=== PATIENT | female | born 2000 | race African-American/Black ===

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

== ENCOUNTER 2018-03-04 17:09 | Emergency (ER) | payer SELFPAY ==
[~2018-03-04] VITALS: Ht 175.3 cm; Wt 68.0 kg
[~2018-03-04 17:09] MED LIST changes: +IBUP-1773 PO; +PNV1TABL67 PO
--- OUTSIDE RECORDS SUMMARY | 2018-03-04 17:19 | XMS REPORT ---
Author Author CURT MOISE [facility] Address [address] [place] [address] Care Team Providers Care Residential Green Building Designer Name Role Phone SUMA CURT Unavailable PROBLEMS Type Condition ICD9-CM Code [id number] Code Onset Dates Condition Status SNOMED Code Problem care, subsequent in third trimester Z34.83 Active 696847336 Problem labor in third trimester without delivery O60.03 Active 6379421 ALLERGIES No Information ENCOUNTERS Encounter Location Date Diagnosis [place] [id number] [place] [address] 75377- 2272 Jun, [place] [address] 39913- 6870 Jun, [place] [address] 54007- 2359 Jun, Screening for deficiency anemia Z13.0 [place] [address] 90108- 2798 Jun, [place] [address] [address] [id number] [place] [address] 66824- 3777 May, 34 weeks gestation of Z3A.34 ; Encounter for immunization Z23 and care, subsequent in third trimester Z34.83 [place] [id number] [place] [address] 74922- 8305 14 May, 2017 32 weeks gestation of Z3A.32 ; care, subsequent in third trimester Z34.83 ; labor in third trimester without delivery O60.03 and Encounter for immunization Z23 [place] [id number] [place] [address] 92153- 1282 Apr, Screening for deficiency anemia Z13.0 [place] [address] [place] [id number] [address] Apr, 28 weeks gestation of Z3A.28 ; Nausea and vomiting during O21.9 and Evaluate anatomy not seen on prior sonogram Z36 [place] [id number] [place] [address] 57572- 3979 Mar, 25 weeks gestation of Z3A.25 [place] [id number] [place] [address] 32081- 6298 Mar, 25 weeks gestation of Z3A.25 [place] [id number] [place] [address] 19020- 4682 Mar, 25 weeks gestation of Z3A.25 [place] [id number] [place] [address] 60052- 3503 Mar, [place] [id number] [place] [address] 27410- 4616 Mar, Encounter for test Z32.00 [place] [id number] [place] [address] 98649- 0779 Aug, Encounter for dental examination and cleaning without abnormal findings Z01.20 [place] [id number] [place] [address] 74435- 9729 Jun, Nodule of vagina N89.9 and Vaginal cyst N89.8 [place] [id number] [place] [address] 29755- 7297 Jun, Nodule of vagina N89.9 IMMUNIZATIONS No Known Immunizations SOCIAL HISTORY Never Assessed REASON FOR VISIT test (walk-in)--[facility] PLAN OF CARE VITAL SIGNS MEDICATIONS Unknown Medications RESULTS Name Result Date Reference Range TEST, URINE (IN HOUSE) 2017-04-16 RESULTS POSITIVE Lot # [id number] Control + Exp date 11/24/2018 PROCEDURES Procedure Date Ordered Result Body Site URINE TEST April 16, 2017 INSTRUCTIONS MEDICATIONS ADMINISTERED No Known Medications MEDICAL (GENERAL) HISTORY Type Description Date Medical History denies
--- OUTSIDE RECORDS SUMMARY | 2018-03-04 17:20 | XMS REPORT ---
Author Author [place] [facility] Address [address] [place] [address] Care Team Providers Care Water Resource Specialist Name Role Phone NYLAWRENCE PANCHALHANY Unavailable PROBLEMS Type Condition ICD9-CM Code PJW40-PO Code Onset Dates Condition Status SNOMED Code Problem care, subsequent in third trimester Z34.83 Active 538078297 Problem labor in third trimester without delivery O60.03 Active 2515107 ALLERGIES No Information ENCOUNTERS Encounter Location Date Diagnosis [place] [id number] [place] [address] 04315- 4905 Jun, [place] [address] 81711- 5290 Jun, [place] [address] 25012- 0513 Jun, Screening for deficiency anemia Z13.0 [place] [address] 35479- 7188 Jun, [place] [address] [id number] [place] [address] 64554- 4695 May, 34 weeks gestation of Z3A.34 ; Encounter for immunization Z23 and care, subsequent in third trimester Z34.83 [place] [id number] [place] [address] 77274- 2060 14 May, 2017 32 weeks gestation of Z3A.32 ; care, subsequent in third trimester Z34.83 ; labor in third trimester without delivery O60.03 and Encounter for immunization Z23 [place] [id number] [place] [address] 91477- 9427 Apr, Screening for deficiency anemia Z13.0 [place] [address] [id number] [place] [address] 89253- 1733 Apr, 28 weeks gestation of Z3A.28 ; Nausea and vomiting during O21.9 and Evaluate anatomy not seen on prior sonogram Z36 [place] [id number] [place] [address] 16233- 2872 Mar, 25 weeks gestation of Z3A.25 [place] [address] 69270- 5377 Mar, 25 weeks gestation of Z3A.25 [place] [address] [id number] [place] [address] 87875- 4787 Mar, 25 weeks gestation of Z3A.25 [place] [address] [id number] [place] [address] 92941- 8702 Mar, [address] 54792- 4763 Mar, Encounter for test Z32.00 [place] [id number] [place] [address] 50637- 0374 Aug, Encounter for dental examination and cleaning without abnormal findings Z01.20 [place] [id number] [place] [address] 89258- 2735 Jun, Nodule of vagina N89.9 and Vaginal cyst N89.8 [place] [id number] [place] [address] 90131- 8402 Jun, Nodule of vagina N89.9 IMMUNIZATIONS Vaccine Route Administration Date Status FLUARIX QUAD (3 AND UP) 2017 IM Intramuscular Jun 25, 2017 Administered SOCIAL HISTORY Never Assessed REASON FOR VISIT OB f/u --olimpia lynn PLAN OF CARE Activity Details Follow Up 2 Weeks, 2 Weeks Reason: VITAL SIGNS Height 69 in 2017-06-25 Weight 186.0 lbs 2017-06-25 Temperature 98.0 degrees Fahrenheit 2017-06-25 Heart Rate 88 bpm 2017-06-25 Respiratory Rate 20 2017-06-25 BMI 27.467 kg/m2 2017-06-25 Blood pressure systolic 118 mmHg 2017-06-25 Blood pressure diastolic 68 mmHg 2017-06-25 MEDICATIONS Medication Instructions Dosage Frequency Start Date End Date Duration Status 28-0.8 MG Orally daily 1 24h Mar, Active RESULTS Name Result Date Reference Range UA OB DIP (IN HOUSE) 2017-06-25 Glucose neg Protein trace PROCEDURES Procedure Date Ordered Result Body Site URINE-NO MICRO Jun 25, 2017 FLUARIX QUAD (3 & UP)-[id number]-2014Jun 25, 2017 SINGLE IMMUNIZATION ADMIN Jun 25, 2017 INSTRUCTIONS MEDICATIONS ADMINISTERED No Known Medications MEDICAL (GENERAL) HISTORY Type Description Date Medical History denies
--- OUTSIDE RECORDS SUMMARY | 2018-03-04 17:20 | XMS REPORT ---
Author Author [place] [facility] Address [address] [place] [address] Care Team Providers Care Boatwright Name Role Phone NYLAWRENCE PANCHALHANY Unavailable PROBLEMS Type Condition ICD9-CM Code VIW62-IK Code Onset Dates Condition Status SNOMED Code Problem care, subsequent in third trimester Z34.83 Active 235522170 Problem labor in third trimester without delivery O60.03 Active 4578260 ALLERGIES No Known Allergies ENCOUNTERS Encounter Location Date Diagnosis [place] [id number] [place] [address] 28015- 3497 Jun, [place] [address] 04771- 4618 Jun, [place] [address] 80932- 9945 Jun, Screening for deficiency anemia Z13.0 [place] [address] [id number] [place] [address] 23487- 1793 Jun, [place] [address] [address] [id number] [place] [address] 53958- 5672 May, 34 weeks gestation of Z3A.34 ; Encounter for immunization Z23 and care, subsequent in third trimester Z34.83 [place] [address] [address] [id number] [place] [address] 93228- 9514 14 May, 2017 32 weeks gestation of Z3A.32 ; care, subsequent in third trimester Z34.83 ; labor in third trimester without delivery O60.03 and Encounter for immunization Z23 [place] [id number] [place] [address] 50630- 9721 Apr, Screening for deficiency anemia Z13.0 [place] [id number] [place] [address] 47967- 0968 Apr, 28 weeks gestation of Z3A.28 ; Nausea and vomiting during O21.9 and Evaluate anatomy not seen on prior sonogram Z36 [place] [address] [id number] [place] [address] 62584- 5498 Mar, 25 weeks gestation of Z3A.25 [place] [address] [id number] [place] [address] 81866- 7570 Mar, 25 weeks gestation of Z3A.25 [place] [address] [id number] [place] [address] 14963- 6932 Mar, 25 weeks gestation of Z3A.25 [place] [address] [id number] [place] [address] 36996- 2234 Mar, [place] [address] [address] [id number] [place] [address] 10168- 8953 Mar, Encounter for test Z32.00 [place] [id number] [place] [address] 55894- 9206 Aug, Encounter for dental examination and cleaning without abnormal findings Z01.20 [place] [id number] [place] [address] 95746- 8986 Jun, Nodule of vagina N89.9 and Vaginal cyst N89.8 [place] [id number] [place] [address] 43130- 6815 Jun, Nodule of vagina N89.9 IMMUNIZATIONS No Known Immunizations SOCIAL HISTORY Never Assessed REASON FOR VISIT OB Flowsheet History--tcuppettRN PLAN OF CARE VITAL SIGNS MEDICATIONS Unknown Medications RESULTS No Results PROCEDURES No Known procedures INSTRUCTIONS MEDICATIONS ADMINISTERED No Known Medications MEDICAL (GENERAL) HISTORY Type Description Date Medical History denies
--- OUTSIDE RECORDS SUMMARY | 2018-03-04 17:20 | XMS REPORT ---
Author Author [place] [facility] Address [address] [place] [address] Care Team Providers Care Asp Net C Developer Name Role Phone NYLAWRENCE PANCHALHANY Unavailable PROBLEMS Type Condition ICD9-CM Code ZKF29-ZF Code Onset Dates Condition Status SNOMED Code Problem care, subsequent in third trimester Z34.83 Active 143088913 Problem labor in third trimester without delivery O60.03 Active 1239232 ALLERGIES No Information ENCOUNTERS Encounter Location Date Diagnosis [place] [id number] [place] [address] 11919- 4361 Jun, [place] [address] 90311- 2614 Jun, [place] [address] 33925- 0026 Jun, Screening for deficiency anemia Z13.0 [place] [address] 61915- 2536 Jun, [place] [id number] [place] [address] 02628- 6945 May, 34 weeks gestation of Z3A.34 ; Encounter for immunization Z23 and care, subsequent in third trimester Z34.83 [place] [id number] [place] [address] 16266- 5582 14 May, 2017 32 weeks gestation of Z3A.32 ; care, subsequent in third trimester Z34.83 ; labor in third trimester without delivery O60.03 and Encounter for immunization Z23 [place] [id number] [place] [address] 27758- 6754 Apr, Screening for deficiency anemia Z13.0 [place] [address] [id number] [place] [address] 43784- 0258 Apr, 28 weeks gestation of Z3A.28 ; Nausea and vomiting during O21.9 and Evaluate anatomy not seen on prior sonogram Z36 [place] [id number] [place] [address] 67020- 2854 Mar, 25 weeks gestation of Z3A.25 [place] [address] 85515- 8533 Mar, 25 weeks gestation of Z3A.25 [place] [address] 55524- 8578 Mar, 25 weeks gestation of Z3A.25 [place] [id number] [place] [address] 15601- 6135 Mar, [place] [address] 39364- 2449 Mar, Encounter for test Z32.00 [place] [id number] [place] [address] 58275- 8278 Aug, Encounter for dental examination and cleaning without abnormal findings Z01.20 [place] [id number] [place] [address] 50993- 9097 Jun, Nodule of vagina N89.9 and Vaginal cyst N89.8 [place] [id number] [place] [address] 53803- 1425 Jun, Nodule of vagina N89.9 IMMUNIZATIONS Vaccine Route Administration Date Status TDAP (BOOSTRIX) IM Intramuscular Jun 10, 2017 Administered SOCIAL HISTORY Never Assessed REASON FOR VISIT ob 2wk f/u-YUMIKO Reveles PLAN OF CARE Activity Details Follow Up 2 Weeks Reason: VITAL SIGNS Height 69 in 2017-06-10 Weight 179 lbs 2017-06-10 Temperature 98.3 degrees Fahrenheit 2017-06-10 Heart Rate 94 bpm 2017-06-10 Respiratory Rate 18 2017-06-10 BMI 26.434 kg/m2 2017-06-10 Blood pressure systolic 120 mmHg 2017-06-10 Blood pressure diastolic 70 mmHg 2017-06-10 MEDICATIONS Unknown Medications RESULTS No Results PROCEDURES Procedure Date Ordered Result Body Site URINE-NO MICRO Jun 10, 2017 SINGLE IMMUNIZATION ADMIN Jun 10, 2017 TDAP (BOOSTRIX) Jun 10, 2017 INSTRUCTIONS MEDICATIONS ADMINISTERED No Known Medications MEDICAL (GENERAL) HISTORY Type Description Date Medical History denies
--- OUTSIDE RECORDS SUMMARY | 2018-03-04 17:20 | XMS REPORT ---
Author Author [place] [facility] Address [address] [place] [address] Care Team Providers Care Sheet Cutter Name Role Phone NYLAWRENCE PANCHALHANY Unavailable PROBLEMS Type Condition ICD9-CM Code QKX30-LQ Code Onset Dates Condition Status SNOMED Code Problem care, subsequent in third trimester Z34.83 Active 453688611 Problem labor in third trimester without delivery O60.03 Active 6234976 ALLERGIES No Information ENCOUNTERS Encounter Location Date Diagnosis [place] [id number] [place] [address] 22674- 4611 Jun, [place] [address] 94906- 9243 Jun, [place] [address] 12063- 2173 Jun, Screening for deficiency anemia Z13.0 [place] [address] 01917- 4627 Jun, [place] [address] [id number] [place] [address] 34588- 6814 May, 34 weeks gestation of Z3A.34 ; Encounter for immunization Z23 and care, subsequent in third trimester Z34.83 [place] [address] [id number] [place] [address] 73276- 9815 14 May, 2017 32 weeks gestation of Z3A.32 ; care, subsequent in third trimester Z34.83 ; labor in third trimester without delivery O60.03 and Encounter for immunization Z23 [place] [id number] [place] [address] 26081- 4569 Apr, Screening for deficiency anemia Z13.0 [place] [id number] [place] [address] 62834- 7614 Apr, 28 weeks gestation of Z3A.28 ; Nausea and vomiting during O21.9 and Evaluate anatomy not seen on prior sonogram Z36 [place] [id number] [place] [address] 56786- 1871 Mar, 25 weeks gestation of Z3A.25 [place] [address] [id number] [place] [address] 59591- 7981 Mar, 25 weeks gestation of Z3A.25 [place] [id number] [place] [address] 11970- 8052 Mar, 25 weeks gestation of Z3A.25 [place] [id number] [place] [address] 83617- 4061 Mar, [place] [id number] [place] [address] 36877- 5189 Mar, Encounter for test Z32.00 [place] [id number] [place] [address] 95574- 5497 Aug, Encounter for dental examination and cleaning without abnormal findings Z01.20 [place] [address] [id number] [place] [address] 51429- 0301 Jun, Nodule of vagina N89.9 and Vaginal cyst N89.8 [place] [id number] [place] [address] 98541- 0000 Jun, Nodule of vagina N89.9 IMMUNIZATIONS No Known Immunizations SOCIAL HISTORY Never Assessed REASON FOR VISIT Requests return call PLAN OF CARE VITAL SIGNS MEDICATIONS Unknown Medications RESULTS No Results PROCEDURES No Known procedures INSTRUCTIONS MEDICATIONS ADMINISTERED No Known Medications MEDICAL (GENERAL) HISTORY Type Description Date Medical History denies
--- OUTSIDE RECORDS SUMMARY | 2018-03-04 17:20 | XMS REPORT ---
Author Author [place] [facility] Address [address] [place] [address] Care Team Providers Care Primary Therapist Name Role Phone NYLAWRENCE PANCHALHANY Unavailable PROBLEMS Type Condition ICD9-CM Code BAY18-HA Code Onset Dates Condition Status SNOMED Code Problem care, subsequent in third trimester Z34.83 Active 126102376 Problem labor in third trimester without delivery O60.03 Active 9606874 ALLERGIES No Information ENCOUNTERS Encounter Location Date Diagnosis [place] [id number] [place] [address] 47169- 2709 Jun, [place] [address] 12492- 4460 Jun, [place] [address] 83820- 8260 Jun, Screening for deficiency anemia Z13.0 [place] [address] 87344- 6328 Jun, [place] [id number] [place] [address] 30031- 3268 May, 34 weeks gestation of Z3A.34 ; Encounter for immunization Z23 and care, subsequent in third trimester Z34.83 [place] [id number] [place] [address] 67074- 7788 14 May, 2017 32 weeks gestation of Z3A.32 ; care, subsequent in third trimester Z34.83 ; labor in third trimester without delivery O60.03 and Encounter for immunization Z23 [place] [id number] [place] [address] 41891- 7699 Apr, Screening for deficiency anemia Z13.0 [place] [address] [place] [address] 45981- 3950 Apr, 28 weeks gestation of Z3A.28 ; Nausea and vomiting during O21.9 and Evaluate anatomy not seen on prior sonogram Z36 [place] [id number] [place] [address] 36308- 8764 Mar, 25 weeks gestation of Z3A.25 [place] [id number] [place] [address] 43634- 4156 Mar, 25 weeks gestation of Z3A.25 [place] [id number] [place] [address] 50165- 1915 Mar, 25 weeks gestation of Z3A.25 [place] [id number] [place] [address] 32606- 0886 Mar, [place] [id number] [place] [address] 99261- 8934 Mar, Encounter for test Z32.00 [place] [id number] [place] [address] 77027- 5065 Aug, Encounter for dental examination and cleaning without abnormal findings Z01.20 [place] [id number] [place] [address] 80754- 7194 Jun, Nodule of vagina N89.9 and Vaginal cyst N89.8 [place] [id number] [place] [address] 69428- 4721 Jun, Nodule of vagina N89.9 IMMUNIZATIONS No Known Immunizations SOCIAL HISTORY Never Assessed REASON FOR VISIT Lab (add-on)--[facility] PLAN OF CARE VITAL SIGNS MEDICATIONS Unknown Medications RESULTS No Results PROCEDURES Procedure Date Ordered Result Body Site BLOOD TYPING, RH (D) April 22, 2017 BLOOD TYPING, ABO April 22, 2017 INSTRUCTIONS MEDICATIONS ADMINISTERED No Known Medications MEDICAL (GENERAL) HISTORY Type Description Date Medical History denies
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
== END 2018-03-04 18:49 | disposition home or self-care (01) ==
LOC: EDUNIT# 17:09 → ER 17:11
DX: S80.11XA Contusion of right lower leg, initial encounter (principal); Z77.22 Contact with and (suspected) exposure to environmental tobacco smoke (acute) (chronic); W21.12XA Struck by tennis racquet, initial encounter
CPT/HCPCS: 99283

== ENCOUNTER 2018-03-13 05:44 | Emergency (ER) | payer SELFPAY ==
[~2018-03-13] VITALS: Ht 175.3 cm; Wt 65.8 kg
[2018-03-13 06:10] LABS: BILIRUBIN,URINE NEGATIVE (NEGATIVE); CLARITY,URINE VERY CLOUDY; COLOR,URINE YELLOW; GLUCOSE, URINE (UA) NEGATIVE (NEGATIVE); KETONES,URINE NEGATIVE (NEGATIVE); LEUKOCYTE ESTERASE ,URINE 3+ (NEGATIVE); NITRITE,URINE NEGATIVE (NEGATIVE); PH,URINE 8 (5-9); PROTEIN,URINE 3+ (NEGATIVE); UROBILINOGEN,URINE NORMAL (NORMAL)
[2018-03-13 06:19] LABS: BACTERIA,URINE FEW /HPF; WBC,URINE 50-100 /HPF
[2018-03-13] MEDS ORDERED: AMOXICILLIN 500 MG (POLYMOX) CAP PO STA (06:54)
--- NOTE | 2018-03-13 07:36 | ED GU-Female ---
General Chief Complaint: -Female Stated Complaint: BACK PAIN POSS UTI Nursing Triage Note: LOWER ABDOMINAL/BACK PAIN, Source: patient Exam Limitations: no limitations History of Present Illness Date Seen by Provider: Mar 13, 2018 Time Seen by Provider: 07:31 Initial Comments This 17-year-old female presents with lower abdominal and back pain. The patient believes that she is . She missed her last period and by dates would be approximately 6 weeks. Patient denies significant vaginal discharge, fever or chill, nausea or vomiting , or vaginal bleeding. Allergies and Home Medications Allergies Coded Allergies: No Known Drug Allergies (Unverified , 10/22/11) Home Medications No Active Prescriptions or Reported Meds Patient Home Medication List Home Medication List Reviewed: Yes Review of Systems Constitutional: No chills, No fever EENTM: no symptoms reported Respiratory: no symptoms reported Cardiovascular: no symptoms reported Gastrointestinal: abdominal pain Genitourinary: denies burning, denies dysuria : Yes LMP: Jan 24, 2018 Musculoskeletal: back pain Skin: No rash Psychiatric/Neurological: No Symptoms Reported Endocrine: No Symptoms Reported Hematologic/Lymphatic: No Symptoms Reported Past Wzviahw-Ptlxtn-Mnjkut Hx Past Med/Social Hx: Reviewed Nursing Past Med/Soc Hx Patient Social History Alcohol Use: Denies Use Recreational Drug Use: No Smoking Status: Never a Smoker 2nd Hand Smoke Exposure: Yes Recent Foreign Travel: No Contact w/Someone Who Travel: No Recent Infectious Disease Expo: No Recent Hopitalizations: No Immunizations Up To Date Tetanus Booster (TDap): Less than 5yrs PED Vaccines UTD: Yes Date of Influenza Vaccine: Jun 25, 2017 Seasonal Allergies Seasonal Allergies: No Past Medical History Surgeries: Yes (EGD) Respiratory: No Cardiac: No Neurological: No Reproductive Disorders: No Female Reproductive Disorders: Denies Sexually Transmitted Disease: No HIV/AIDS: No Genitourinary: No Gastrointestinal: Yes (CHRONIC LOWER ABDOMINAL PAIN ) Musculoskeletal: No Endocrine: No HEENT: No Cancer: No Psychosocial: No Integumentary: No Blood Disorders: No Adverse Reaction/Blood Tranf: No Family Medical History Diabetes mellitus (Mother-Gestational diabetes) No Pertinent Family Hx Physical Exam Vital Signs Vital Signs - First Documented 03/13/18 05:50 Temp 98.7 Pulse 81 Resp 18 B/P (MAP) 119/76 O2 Delivery Room Air Capillary Refill : General Appearance: WD/WN, no apparent distress HEENT: normal ENT inspection Cardiovascular: regular rate, rhythm Respiratory: lungs clear Gastrointestinal: normal bowel sounds, non tender Genital/Rectal: normal genital exam Pelvic: normal external exam, normal adnexa, other (patient's os was closed. Her uterus was retroflexed.) Back: normal inspection ( No adnexal masses were noted) Extremities: normal range of motion Neurologic/Psychiatric: no motor/sensory deficits Skin: normal color, warm/dry Progress/Results/Core Measures Suspected Sepsis SIRS Temperature:98.7 Pulse: Respiratory Rate: Blood Pressure / Mean: Results/Orders Lab Results Laboratory Tests Test 03/13/18 06:00 03/13/18 07:29 03/13/18 07:32 Range/Units Urine Color YELLOW Urine Clarity VERY CLOUDY H Urine pH 8 5-9 Urine Specific [place] 1.015 L 1.016-1.022 Urine Protein 3+ H NEGATIVE Urine Glucose (UA) NEGATIVE NEGATIVE Urine Ketones NEGATIVE NEGATIVE Urine Nitrite NEGATIVE NEGATIVE Urine Bilirubin NEGATIVE NEGATIVE Urine Urobilinogen NORMAL NORMAL MG/DL Urine Leukocyte Esterase 3+ H NEGATIVE Urine RBC (Auto) 4+ H NEGATIVE Urine RBC 10-25 H /HPF Urine WBC 50-100 H /HPF Urine Squamous Epithelial Cells 2-5 /HPF Urine Crystals NONE /LPF Urine Bacteria FEW H /HPF Urine Casts NONE /LPF Urine Mucus MODERATE H /LPF Urine Culture Indicated YES Human Chorionic Gonadotropin, Quant [id number] H <5 MIU/ML My Orders Orders - MATTHIAS KIM MD Hcg,Quantitative (03/13/18 06:54) Amoxicillin Capsule (Polymox Capsule) (03/13/18 06:54) Us Ob Single Fetus<14 [id number] (03/13/18 08:57) Wet Prep (03/13/18 09:35) Chlam Dna Probe (03/13/18 09:35) Neisseria Gonorrhea Swab (03/13/18 09:35) Vital Signs/I&O 03/13/18 05:50 Temp 98.7 Pulse 81 Resp 18 B/P (MAP) 119/76 O2 Delivery Room Air Capillary Refill : Point of Care Testing Urine -Bedside: Positive Progress Note : Time: 08:37 Progress Note The patient's laboratory examination demonstrated a UTI. Culture was done. Patient was given 500 mg of amoxicillin orally to start her treatment for a UTI here in the emergency department. The patient's type and Rh demonstrated that the patient was be positive. Pelvic exam demonstrated a closed os. Uterus was small and retroflexed. Cultures were obtained. Quantitative hCG was 130,000. Ultrasound demonstrated a viable intrauterine of 8 weeks. Departure Impression Primary Impression: Urinary tract infection Qualified Codes: N30.00 - Acute cystitis without hematuria Additional Impression: Intrauterine Disposition: HOME, SELF-CARE Condition: Improved Departure-Patient Inst. Decision time for Depature: 08:40 Referrals: NO,LOCAL PHYSICIAN (PCP) Primary Care Physician [facility] Patient Instructions: Acute Cystitis (DC) Add. Discharge Instructions: C [facility] for your urinary tract infection and tomorrow. Amoxicillin as prescribed. Return if any problems or questions. All discharge instructions reviewed with patient and/or family. Voiced understanding. Scripts No Active Prescriptions or Reported Meds MATTHIAS KIM MD Mar 13, 2018 07:35
--- NOTE | 2018-03-13 09:27 | Diagnostic Imaging Report ---
PROCEDURE: US OB SINGLE FETUS <14 WKS. TECHNIQUE: Multiple real-time grayscale images were obtained over the gravid uterus in various projections. Indication: Dysuria, pelvic pain, . Comparison: None. Discussion: Transabdominal sonographic evaluation of the pelvis was performed. Early live intrauterine at 8 weeks 4 days by today's sonographic measurements. [place]-rump length measures 1.97 cm. heart rate measures 161 beats per minute. Gestational sac appears within normal limits. The ovaries were not visualized, likely obscured by bowel. No abnormal adnexal mass or fluid. EDC by today's ultrasound is 10/19/2018. Impression: 1. Early live intrauterine at 8 weeks 4 days. No acute abnormality identified. Dictated by: Dictated on workstation # [id number]
--- OUTSIDE RECORDS SUMMARY | 2018-03-13 14:16 | XMS REPORT | Continuity of Care Document ---
Author Author [facility] Organization [facility] Address Unknown Phone Unavailable Allergies Active Description Code Type Severity Reaction Onset Reported/Identified Relationship to Patient Clinical Status Yes No Known Drug Allergies [id number] Drug Allergy Unknown N/A 10/22/2011 Medications There is no data. Problems Date Dx Coded Attending Type Code [...] 10/02/2015 RICA GUILLEN MD Ot R11.0 10/02/2015 RCIA GUILLEN MD Ot R19.7 10/02/2015 RICA GUILLEN [...] MD Ot R19.7 DIARRHEA, UNSPECIFIED 02/01/2016 NABIL DOVERONICA K Ot O20.0 THREATENED 02/01/2016 NABIL DONOYA K Ot O23.41 UNSP INFCT OF URINARY TRACT IN 02/01/2016 NABIL DONOYA K Ot Z3A.01 LESS THAN 8 WEEKS GESTATION OF 02/03/2016 NABIL DO, VERONICA K Ot O20.0 THREATENED 02/03/2016 NABIL DO, VERONICA K Ot O23.41 UNSP INFCT OF URINARY TRACT IN 02/03/2016 NABIL DO, VERONICA K Ot Z3A.01 LESS THAN 8 WEEKS GESTATION OF 06/30/2016 NATALIA JONES MD Ot S92.355A NONDISP FX OF FIFTH METATARSAL BONE, LEF 06/30/2016 NATALIA JONES MD Ot S99.912A UNSPECIFIED INJURY OF LEFT ANKLE, INITIA 06/30/2016 NATALIA JONES MD Ot X58.XXXA EXPOSURE TO OTHER SPECIFIED FACTORS, INI 06/30/2016 NATALIA JONES MD Ot Y92.[address] [employer] [address] 06/30/2016 NATALIA JONES MD, Ot Y93.73 ACTIVITY, RACQU[employer] 06/30/2016 NATALIA JONES MD Ot Y99.8 OTHER EXTERNAL CAUSE STATUS 07/01/2016 NATALIA JONES MD, Ot S92.355A NONDISP FX OF FIFTH METATARSAL BONE, LEF 07/01/2016 NATALIA JONES MD, Ot S99.912A UNSPECIFIED INJURY OF LEFT ANKLE, INITIA 07/01/2016 NATALIA JONES MD Ot X58.XXXA EXPOSURE TO OTHER SPECIFIED FACTORS, INI 07/01/2016 NATALIA JONES MD Ot Y92.[address] [employer] [address] 07/01/2016 NATALIA JONES MD, Ot Y93.73 ACTIVITY, [employer] 07/01/2016 NATALIA JONES MD Ot Y99.8 OTHER EXTERNAL CAUSE STATUS 07/21/2016 AUDELIA CESAR NUTRITION THERAPIST Ot 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, UNSP 07/21/2016 AUDELIA CESAR NUTRITION THERAPIST Ot 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, UNSP 07/22/2016 AUDELIA CESAR NUTRITION THERAPIST Ot 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, UNSP 07/24/2016 AUDELIA CESAR NUTRITION THERAPIST Ot 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, UNSP 09/07/2016 WILMER LANDRUM, RICA Moore Ot R10.2 PELVIC AND PERINEAL PAIN 09/07/2016 WILMER LANDRUM, RICA Moore Ot R10.9 UNSPECIFIED ABDOMINAL PAIN 09/07/2016 RICA GUILLEN MD Ot R11.0 NAUSEA 09/07/2016 RICA GUILLEN MD Ot R19.7 DIARRHEA, UNSPECIFIED 09/07/2016 WILMER LANDRUM, RICA Moore Ot Z83.79 FAMILY HISTORY OF OTHER DISEASES OF THE 09/07/2016 WILMER LANDRUM, RICA Moore Ot R10.2 PELVIC AND PERINEAL PAIN 09/07/2016 WILMER LANDRUM, RICA Moore Ot R11.2 NAUSEA WITH VOMITING, UNSPECIFIED 09/07/2016 WILMER LANDRUM, RICA Moore Ot R19.7 DIARRHEA, UNSPECIFIED 11/02/2016 AUDELIA CESAR NUTRITION THERAPIST Ot 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, UNSP 11/02/2016 AUDELIA CESAR NUTRITION THERAPIST Ot 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, UNSP 11/12/2016 AUDELIA CESAR NUTRITION THERAPIST Ot 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, UNSP 12/10/2016 YAMILETH, JOHNNY SENIOR SCHEDULER Ot N39.0 URINARY TRACT INFECTION, SITE NOT SPECIF 12/10/2016 YAMILETH, JOHNNY SENIOR SCHEDULER Ot R30.0 DYSURIA 12/10/2016 AUDELIA CESAR NUTRITION THERAPIST Ot 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, UNSP 12/14/2016 YAMILETH, JOHNNY SENIOR SCHEDULER Ot N39.0 URINARY TRACT INFECTION, SITE NOT SPECIF 12/14/2016 YAMILETH, JOHNNY SENIOR SCHEDULER Ot R30.0 DYSURIA 12/14/2016 YAMILETH, JOHNNY SENIOR SCHEDULER Ot N39.0 URINARY TRACT INFECTION, SITE NOT SPECIF 12/14/2016 YAMILETH, JOHNNY SENIOR SCHEDULER Ot R30.0 DYSURIA 03/12/2017 AUDELIA CESAR NUTRITION THERAPIST Ot 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, UNSP 03/13/2017 TEA CESPEDES Ot O23.42 UNSP INFCT OF URINARY TRACT IN 03/13/2017 TEA CESPEDES Ot O26.892 OTH RELATED CONDITIONS, SECOND 03/13/2017 TEA CESPEDES Ot Z3A.18 18 WEEKS GESTATION OF 03/13/2017 AUDELIA CESAR APRN Ot 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, UNSP 04/26/2017 AUDELIA CESAR APRN Ot 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, UNSP 04/26/2017 NATALIA JONES MD, Ot K92.0 HEMATEMESIS 04/26/2017 NATALIA JONES MD, Ot O99.612 DISEASES OF THE DGSTV SYS COMP 04/26/2017 NATALIA JONES MD, Ot Z3A.26 26 WEEKS GESTATION OF 04/26/2017 AUDELIA CESAR APRN Ot 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, UNSP 04/28/2017 NATALIA JONES MD, Ot K92.0 HEMATEMESIS 04/28/2017 NATALIA JONES MD, Ot O99.612 DISEASES OF THE DGSTV SYS COMP 04/28/2017 NATALIA JONES MD, Ot Z3A.26 26 WEEKS GESTATION OF 05/04/2017 AUDELIA CESAR APRN Ot 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, UNSP 05/05/2017 AUDELIA CESAR APRN Ot 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, [facility] 05/22/2017 MARLI ALEJANDRA MD, Ot Z36 ENCOUNTER FOR SCREENING OF MOT 05/22/2017 MARLI ALEJANDRA MD, Ot Z3A.27 27 WEEKS GESTATION OF 06/06/2017 MARLI ALEJANDRA MD, Ot O09.33 SUPRVSN OF PREG W INSUFFICIENT ANTENAT C 06/06/2017 MARLI ALEJANDRA MD, Ot O26.893 OTH RELATED CONDITIONS, THIRD 06/06/2017 MARLI ALEJANDRA MD, Ot O99.323 DRUG USE COMPLICATING , THIRD T 06/06/2017 MARLI ALEJANDRA MD Ot R10.30 LOWER ABDOMINAL PAIN, UNSPECIFIED 06/06/2017 MARLI ALEJANDRA MD Ot Z3A.31 31 WEEKS GESTATION OF 07/05/2017 BARNIDGE DO DONNELL E Ot D64.9 ANEMIA, UNSPECIFIED 07/05/2017 BARNIDGE DO DONNELL E Ot O60.14X0 LABOR THIRD TRI W DELIVE 07/05/2017 BARNIDGE DO, DONNELL E Ot O62.3 PRECIPITATE LABOR 07/05/2017 BARNIDGE DO DONNELL E Ot O70.0 FIRST DEGREE PERINEAL LACERATION DURING 07/05/2017 BARNIDGE DO, DONNELL E Ot O76 ABNLT IN HEART RATE AND RHYTHM COM 07/05/2017 BARNIDGE DO DONNELL E Ot O99.03 ANEMIA COMPLICATING THE PUERPERIUM 07/05/2017 BARNIDGE DO DONNELL E Ot Z37.0 SINGLE LIVE 07/05/2017 BARNIDGE DO DONNELL E Ot Z3A.35 35 WEEKS GESTATION OF 03/04/2018 AUDELIA CESAR APRN Ot 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, [facility] 03/04/2018 MARLI ALEJANDRA MD Ot Z36 ENCOUNTER FOR SCREENING OF MOT 03/04/2018 MARLI ALEJANDRA MD, Ot Z3A.27 27 WEEKS GESTATION OF 03/04/2018 AUDELIA CESAR APRN Ot 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, [facility] 03/04/2018 MARLI ALEJANDRA MD Ot Z36 ENCOUNTER FOR SCREENING OF MOT 03/04/2018 MARLI ALEJANDRA MD, Ot Z3A.27 27 WEEKS GESTATION OF Procedures Code Description Performed By Performed On [id number] REPAIR PERINEUM SKIN, EXTERNAL APPROACH 07/03/2017 [id number] DELIVERY OF PRODUCTS OF CONCEPTION, EXTE 07/03/2017 Results Test Result Range Anaerobic and Aerobic Culture - 07/20/16 11:27 Anaerobic and Aerobic Culture Note Complete urinalysis with reflex to culture - 12/10/16 12:40 Urine color determination YELLOW NRG Urine clarity determination CLEAR NRG Urine pH measurement by test strip 7 5-9 Specific gravity of urine by test strip 1.015 1.016- 1.022 Urine protein assay by test strip, semi-quantitative 2+ NEGATIVE Urine glucose detection by automated test strip NEGATIVE NEGATIVE Erythrocytes detection in urine sediment by light microscopy NEGATIVE NEGATIVE Urine ketones detection by automated test strip 1+ NEGATIVE Urine nitrite detection by test strip NEGATIVE NEGATIVE Urine total bilirubin detection by test strip NEGATIVE NEGATIVE Urine urobilinogen measurement by automated test strip (mass/volume) NORMAL NORMAL Urine leukocyte esterase detection by dipstick 3+ NEGATIVE Automated urine sediment erythrocyte count by microscopy (number/high power field) RARE NRG Automated urine sediment leukocyte count by microscopy (number/high power field ) [HPF] NRG Bacteria detection in urine sediment by light microscopy MODERATE NRG Squamous epithelial cells detection in urine sediment by light microscopy 2-5 NRG Crystals detection in urine sediment by light microscopy NONE NRG Casts detection in urine sediment by light microscopy NONE NRG Mucus detection in urine sediment by light microscopy SMALL NRG Complete urinalysis with reflex to culture YES NRG Bacterial urine culture - 12/10/16 12:40 Bacterial urine culture FOOTNOTE NRG Complete urinalysis with reflex to culture - 03/12/17 22:11 Urine color determination YELLOW NRG Urine clarity determination CLEAR NRG Urine pH measurement by test strip 8 5-9 Specific gravity of urine by test strip 1.010 1.016- 1.022 Urine protein assay by test strip, semi-quantitative NEGATIVE NEGATIVE Urine glucose detection by automated test strip NEGATIVE NEGATIVE Erythrocytes detection in urine sediment by light microscopy NEGATIVE NEGATIVE Urine ketones detection by automated test strip NEGATIVE NEGATIVE Urine nitrite detection by test strip NEGATIVE NEGATIVE Urine total bilirubin detection by test strip NEGATIVE NEGATIVE Urine urobilinogen measurement by automated test strip (mass/volume) NORMAL NORMAL Urine leukocyte esterase detection by dipstick 2+ NEGATIVE Automated urine sediment erythrocyte count by microscopy (number/high power field) NONE NRG Automated urine sediment leukocyte count by microscopy (number/high power field ) [HPF] NRG Bacteria detection in urine sediment by light microscopy TRACE NRG Squamous epithelial cells detection in urine sediment by light microscopy 5-10 NRG Crystals detection in urine sediment by light microscopy NONE NRG Casts detection in urine sediment by light microscopy NONE NRG Mucus detection in urine sediment by light microscopy NEGATIVE NRG Complete urinalysis with reflex to culture YES NRG Bacterial urine culture - 03/12/17 22:11 URINE CULTURE RESULTS <10,000/ML NRG Complete blood count (CBC) with automated white blood cell (WBC) differential - 03/12/17 22:15 Blood leukocytes automated count (number/volume) 9.2 10*3/uL 4.3-11.0 Blood erythrocytes automated count (number/volume) 3.53 10*6/uL 4.35-5.85 Venous blood hemoglobin measurement (mass/volume) 11.4 g/dL 11.5-16.0 Blood hematocrit (volume fraction) 33 % 35-52 Automated erythrocyte mean corpuscular volume 94 [foz_us] 80-99 Automated erythrocyte mean corpuscular hemoglobin (mass per erythrocyte) 32 pg 25-34 Automated erythrocyte mean corpuscular hemoglobin concentration measurement ( mass/volume) 35 g/dL 32-36 Automated erythrocyte distribution width ratio 12.8 % 10.0-14.5 Automated blood platelet count (count/volume) 248 10*3/uL 130-400 Automated blood platelet mean volume measurement 10.6 [foz_us] 7.4-10.4 Automated blood neutrophils/100 leukocytes 71 % 42-75 Automated blood lymphocytes/100 leukocytes 20 % 12-44 Blood monocytes/100 leukocytes 9 % 0-12 Automated blood eosinophils/100 leukocytes 1 % 0-10 Automated blood basophils/100 leukocytes 0 % 0-10 Blood neutrophils automated count (number/volume) 6.5 10*3 1.8-7.8 Blood lymphocytes automated count (number/volume) 1.9 10*3 1.0-4.0 Blood monocytes automated count (number/volume) 0.8 10*3 0.0-1.0 Automated eosinophil count 0.1 10*3/uL 0.0-0.3 Automated blood basophil count (count/volume) 0.0 10*3/uL 0.0-0.1 Comprehensive metabolic panel - 03/12/17 22:15 Serum or plasma sodium measurement (moles/volume) 139 mmol/L 135-145 Serum or plasma potassium measurement (moles/volume) 3.6 mmol/L 3.6-5.0 Serum or plasma chloride measurement (moles/volume) 109 mmol/L 98-107 Carbon dioxide 19 mmol/L 21-32 Serum or plasma anion gap determination (moles/volume) 11 mmol/L 5-14 Serum or plasma urea nitrogen measurement (mass/volume) 10 mg/dL 7-18 Serum or plasma creatinine measurement (mass/volume) 0.60 mg/dL 0.60-1.30 Serum or plasma urea nitrogen/creatinine mass ratio 17 0 -20 Serum or plasma creatinine measurement with calculation of estimated glomerular filtration rate > NRG Serum or plasma glucose measurement (mass/volume) 110 mg/dL 70-105 Serum or plasma calcium measurement (mass/volume) 9.6 mg/dL 8.5-10.1 Serum or plasma total bilirubin measurement (mass/volume) 0.2 mg/dL 0.1-1.0 Serum or plasma alkaline phosphatase measurement (enzymatic activity/volume) 70 U/L 60-350 Serum or plasma aspartate aminotransferase measurement (enzymatic activity/ volume) 17 U/L 5-34 Serum or plasma alanine aminotransferase measurement (enzymatic activity/volume ) 15 U/L 0-55 Serum or plasma protein measurement (mass/volume) 6.9 g/dL 6.4-8.2 Serum or plasma albumin measurement (mass/volume) 3.6 g/dL 3.2-4.5 Genital Culture, Routine - 04/22/17 14:10 Genital Culture, Routine Note Urine Culture, Routine - 04/22/17 14:10 Urine Culture, Routine Note ABO Grouping and Rho(D) Typing - 04/22/17 14:10 ABO Grouping B Rh Factor Positive Written Authorization - 04/22/17 14:10 Written Authorization Comment CBC With Differential/Platelet - 04/22/17 14:10 WBC 10.0 x10E3/uL 3.4-10.8 RBC 3.54 x10E6/uL 3.77-5.28 Hemoglobin 11.1 g/dL 11.1-15.9 Hematocrit 33.7 % 34.0-46.6 MCV 95 fL 79-97 MCH 31.4 pg 26.6-33.0 MCHC 32.9 g/dL 31.5-35.7 RDW 12.8 % 12.3-15.4 Platelets 246 x10E3/uL 150-379 Neutrophils 77 % Lymphs 16 % Monocytes 7 % Eos 0 % Basos 0 % Neutrophils (Absolute) 7.6 x10E3/uL 1.4-7.0 Lymphs (Absolute) 1.6 x10E3/uL 0.7-3.1 Monocytes(Absolute) 0.7 x10E3/uL 0.1-0.9 Eos (Absolute) 0.0 x10E3/uL 0.0-0.4 Baso (Absolute) 0.0 x10E3/uL 0.0-0.2 Immature Granulocytes 0 % Immature Grans (Abs) 0.0 x10E3/uL 0.0-0.1 TSH - 04/22/17 14:10 TSH 1.370 uIU/mL 0.450-4.500 Rubella Antibodies, IgG - 04/22/17 14:10 Rubella Antibodies, IgG 5.47 index Immune >0.99 Antibody Screen - 04/22/17 14:10 Antibody Screen Negative Negative CBC With Differential/Platelet - 05/13/17 15:43 WBC 10.3 x10E3/uL 3.4-10.8 RBC 3.48 x10E6/uL 3.77-5.28 Hemoglobin 10.6 g/dL 11.1-15.9 Hematocrit 32.6 % 34.0-46.6 MCV 94 fL 79-97 MCH 30.5 pg 26.6-33.0 MCHC 32.5 g/dL 31.5-35.7 RDW 12.8 % 12.3-15.4 Platelets 311 x10E3/uL 150-379 Neutrophils 70 % Lymphs 17 % Monocytes 11 % Eos 1 % Basos 0 % Neutrophils (Absolute) 7.2 x10E3/uL 1.4-7.0 Lymphs (Absolute) 1.8 x10E3/uL 0.7-3.1 Monocytes(Absolute) 1.2 x10E3/uL 0.1-0.9 Eos (Absolute) 0.1 x10E3/uL 0.0-0.4 Baso (Absolute) 0.0 x10E3/uL 0.0-0.2 Immature Granulocytes 1 % Immature Grans (Abs) 0.1 x10E3/uL 0.0-0.1 Gest. Diabetes 1-Hr Screen - 05/13/17 15:43 Gestational Diabetes Screen 79 mg/dL 65-139 CBC - 05/13/17 15:43 WBC 10.3 x10E3/uL 3.4-10.8 RBC 3.48 x10E6/uL 3.77-5.28 Hemoglobin 10.6 g/dL 11.1-15.9 Hematocrit 32.6 % 34.0-46.6 MCV 94 fL 79-97 MCH 30.5 pg 26.6-33.0 MCHC 32.5 g/dL 31.5-35.7 RDW 12.8 % 12.3-15.4 Platelets 311 x10E3/uL 150-379 Neutrophils 70 % NRG Lymphs 17 % NRG Monocytes 11 % NRG Eos 1 % NRG Basos 0 % NRG Neutrophils (Absolute) 7.2 x10E3/uL 1.4-7.0 Lymphs (Absolute) 1.8 x10E3/uL 0.7-3.1 Monocytes(Absolute) 1.2 x10E3/uL 0.1-0.9 Eos (Absolute) 0.1 x10E3/uL 0.0-0.4 Baso (Absolute) 0.0 x10E3/uL 0.0-0.2 Immature Granulocytes 1 % NRG Immature Grans (Abs) 0.1 x10E3/uL 0.0-0.1 Immature Cells NRG NRBC NRG Hematology Comments: NRG Complete urinalysis with reflex to culture - 06/05/17 20:25 Urine color determination YELLOW NRG Urine clarity determination CLEAR NRG Urine pH measurement by test strip 6 5-9 Specific gravity of urine by test strip 1.020 1.016- 1.022 Urine protein assay by test strip, semi-quantitative NEGATIVE NEGATIVE Urine glucose detection by automated test strip 1+ NEGATIVE Erythrocytes detection in urine sediment by light microscopy NEGATIVE NEGATIVE Urine ketones detection by automated test strip NEGATIVE NEGATIVE Urine nitrite detection by test strip NEGATIVE NEGATIVE Urine total bilirubin detection by test strip NEGATIVE NEGATIVE Urine urobilinogen measurement by automated test strip (mass/volume) NORMAL NORMAL Urine leukocyte esterase detection by dipstick 1+ NEGATIVE Automated urine sediment erythrocyte count by microscopy (number/high power field) NONE NRG Automated urine sediment leukocyte count by microscopy (number/high power field ) [HPF] NRG Bacteria detection in urine sediment by light microscopy NEGATIVE NRG Squamous epithelial cells detection in urine sediment by light microscopy 2-5 NRG Crystals detection in urine sediment by light microscopy NONE NRG Casts detection in urine sediment by light microscopy NONE NRG Mucus detection in urine sediment by light microscopy MODERATE NRG Complete urinalysis with reflex to culture NO NRG Urine drug screening test - 06/05/17 20:25 Urine phencyclidine detection by screening method NEGATIVE NEGATIVE Urine benzodiazepines detection by screening method NEGATIVE NEGATIVE Urine cocaine detection NEGATIVE NEGATIVE Urine amphetamines detection by screening method NEGATIVE NEGATIVE Urine methamphetamine detection by screening method NEGATIVE NEGATIVE Urine cannabinoids detection by screening method POSITIVE NEGATIVE Urine opiates detection by screening method NEGATIVE NEGATIVE Urine barbiturates detection NEGATIVE NEGATIVE Screening urine tricyclic antidepressants detection NEGATIVE NEGATIVE Urine methadone detection by screening method NEGATIVE NEGATIVE Urine oxycodone detection NEGATIVE NEGATIVE Urine propoxyphene detection NEGATIVE NEGATIVE Capillary blood glucose measurement by glucometer (mass/volume) - 06/05/17 20: 58 Capillary blood glucose measurement by glucometer (mass/volume) 84 mg/dL 70-110 Complete blood count (CBC) with automated white blood cell (WBC) differential - 06/06/17 01:35 Blood leukocytes automated count (number/volume) 10.8 10*3/uL 4.3-11.0 Blood erythrocytes automated count (number/volume) 3.25 10*6/uL 4.35-5.85 Venous blood hemoglobin measurement (mass/volume) 10.1 g/dL 11.5-16.0 Blood hematocrit (volume fraction) 30 % 35-52 Automated erythrocyte mean corpuscular volume 93 [foz_us] 80-99 Automated erythrocyte mean corpuscular hemoglobin (mass per erythrocyte) 31 pg 25-34 Automated erythrocyte mean corpuscular hemoglobin concentration measurement ( mass/volume) 33 g/dL 32-36 Automated erythrocyte distribution width ratio 12.4 % 10.0-14.5 Automated blood platelet count (count/volume) 203 10*3/uL 130-400 Automated blood platelet mean volume measurement 10.5 [foz_us] 7.4-10.4 Automated blood neutrophils/100 leukocytes 87 % 42-75 Automated blood lymphocytes/100 leukocytes 9 % 12-44 Blood monocytes/100 leukocytes 4 % 0-12 Automated blood eosinophils/100 leukocytes 0 % 0-10 Automated blood basophils/100 leukocytes 0 % 0-10 Blood neutrophils automated count (number/volume) 9.3 10*3 1.8-7.8 Blood lymphocytes automated count (number/volume) 1.0 10*3 1.0-4.0 Blood monocytes automated count (number/volume) 0.5 10*3 0.0-1.0 Automated eosinophil count 0.0 10*3/uL 0.0-0.3 Automated blood basophil count (count/volume) 0.0 10*3/uL 0.0-0.1 Comprehensive metabolic panel - 06/06/17 01:35 Serum or plasma sodium measurement (moles/volume) 137 mmol/L 135-145 Serum or plasma potassium measurement (moles/volume) 3.4 mmol/L 3.6-5.0 Serum or plasma chloride measurement (moles/volume) 109 mmol/L 98-107 Carbon dioxide 16 mmol/L 21-32 Serum or plasma anion gap determination (moles/volume) 12 mmol/L 5-14 Serum or plasma urea nitrogen measurement (mass/volume) 10 mg/dL 7-18 Serum or plasma creatinine measurement (mass/volume) 0.63 mg/dL 0.60-1.30 Serum or plasma urea nitrogen/creatinine mass ratio 16 NRG Serum or plasma creatinine measurement with calculation of estimated glomerular filtration rate > NRG Serum or plasma glucose measurement (mass/volume) 93 mg/dL 70-105 Serum or plasma calcium measurement (mass/volume) 8.5 mg/dL 8.5-10.1 Serum or plasma total bilirubin measurement (mass/volume) 0.3 mg/dL 0.1-1.0 Serum or plasma alkaline phosphatase measurement (enzymatic activity/volume) 136 U/L 60-350 Serum or plasma aspartate aminotransferase measurement (enzymatic activity/ volume) 18 U/L 5-34 Serum or plasma alanine aminotransferase measurement (enzymatic activity/volume ) 15 U/L 0-55 Serum or plasma protein measurement (mass/volume) 5.8 g/dL 6.4-8.2 Serum or plasma albumin measurement (mass/volume) 3.0 g/dL 3.2-4.5 Magnesium - 06/06/17 01:35 Magnesium 1.6 mg/dL 1.8-2.4 Magnesium - 06/06/17 08:45 Magnesium 3.3 mg/dL 1.8-2.4 Complete blood count (CBC) with automated white blood cell (WBC) differential - 07/03/17 02:06 Blood leukocytes automated count (number/volume) 11.2 10*3/uL 4.3-11.0 Blood erythrocytes automated count (number/volume) 3.46 10*6/uL 4.35-5.85 Venous blood hemoglobin measurement (mass/volume) 10.5 g/dL 11.5-16.0 Blood hematocrit (volume fraction) 32 % 35-52 Automated erythrocyte mean corpuscular volume 93 [foz_us] 80-99 Automated erythrocyte mean corpuscular hemoglobin (mass per erythrocyte) 30 pg 25-34 Automated erythrocyte mean corpuscular hemoglobin concentration measurement ( mass/volume) 33 g/dL 32-36 Automated erythrocyte distribution width ratio 12.7 % 10.0-14.5 Automated blood platelet count (count/volume) 231 10*3/uL 130-400 Automated blood platelet mean volume measurement 11.0 [foz_us] 7.4-10.4 Automated blood neutrophils/100 leukocytes 66 % 42-75 Automated blood lymphocytes/100 leukocytes 20 % 12-44 Blood monocytes/100 leukocytes 14 % 0-12 Automated blood eosinophils/100 leukocytes 0 % 0-10 Automated blood basophils/100 leukocytes 0 % 0-10 Blood neutrophils automated count (number/volume) 7.4 10*3 1.8-7.8 Blood lymphocytes automated count (number/volume) 2.2 10*3 1.0-4.0 Blood monocytes automated count (number/volume) 1.5 10*3 0.0-1.0 Automated eosinophil count 0.0 10*3/uL 0.0-0.3 Automated blood basophil count (count/volume) 0.0 10*3/uL 0.0-0.1 Blood type T Indirect antibody screen panel - 07/03/17 02:06 ABO+Rh group BP NR Transfusion band number [id number] [facility] Blood group antibody screen NEGATIVE [facility] Complete blood count (CBC) with automated white blood cell (WBC) differential - 07/04/17 05:30 Blood leukocytes automated count (number/volume) 11.2 10*3/uL 4.3-11.0 Blood erythrocytes automated count (number/volume) 3.46 10*6/uL 4.35-5.85 Venous blood hemoglobin measurement (mass/volume) 10.5 g/dL 11.5-16.0 Blood hematocrit (volume fraction) 32 % 35-52 Automated erythrocyte mean corpuscular volume 94 [foz_us] 80-99 Automated erythrocyte mean corpuscular hemoglobin (mass per erythrocyte) 30 pg 25-34 Automated erythrocyte mean corpuscular hemoglobin concentration measurement ( mass/volume) 32 g/dL 32-36 Automated erythrocyte distribution width ratio 13.1 % 10.0-14.5 Automated blood platelet count (count/volume) 213 10*3/uL 130-400 Automated blood platelet mean volume measurement 10.6 [foz_us] 7.4-10.4 Automated blood neutrophils/100 leukocytes 73 % 42-75 Automated blood lymphocytes/100 leukocytes 17 % 12-44 Blood monocytes/100 leukocytes 10 % 0-12 Automated blood eosinophils/100 leukocytes 1 % 0-10 Automated blood basophils/100 leukocytes 0 % 0-10 Blood neutrophils automated count (number/volume) 8.2 10*3 1.8-7.8 Blood lymphocytes automated count (number/volume) 1.9 10*3 1.0-4.0 Blood monocytes automated count (number/volume) 1.1 10*3 0.0-1.0 Automated eosinophil count 0.1 10*3/uL 0.0-0.3 Automated blood basophil count (count/volume) 0.0 10*3/uL 0.0-0.1 Encounters ACCT No. Visit Date/Time Discharge Status Pt. Type Provider Facility Loc./Unit Complaint [id number] 03/04/2018 17:11:00 03/04/2018 18:49:00 DIS Emergency ADRIAN BECKER APRN [facility] ER R LEG SWELLING [id number] 07/03/2017 01:25:00 07/05/2017 11:15:00 DIS Inpatient ASHLEYOLGA CASANOVA DONNELL Yoseph [facility] LABOR [id number] 06/05/2017 19:35:00 06/06/2017 12:25:00 DIS Inpatient MARLI ALEJANDRA MD [facility] CTX [id number] 05/14/2017 09:59:00 05/14/2017 23:59:59 CLS Preadmit MARLI ALEJANDRA MD [facility] RAD Z36 EVALUATE ANATOMY NOT SEEN ON PRIOR SONO [id number] 05/05/2017 10:32:00 05/05/2017 23:59:59 CLS Outpatient MARLI ALEJANDRA MD [facility] RAD 25 WEEKS GESTATION OF PREG [id number] 04/26/2017 12:51:00 04/26/2017 14:21:00 DIS Emergency NATALIA JONES MD [facility] ER VOMITING BLOOD/26 WKS PG [id number] 03/12/2017 22:03:00 03/13/2017 00:31:00 DIS Emergency TEA CESPEDES [facility] ER 18W PREG, BACK AND ABD PAIN [id number] 12/10/2016 12:22:00 12/10/2016 13:26:00 DIS Emergency J[facility]NNY CARSON [facility] [facility] ER UTI SYMPTOMS [id number] 07/20/2016 14:16:00 07/20/2016 23:59:59 CLS Outpatient AUDELIA CESAR NUTRITION THERAPIST Via [facility] RAD NODULE OF VAGINA [id number] 07/16/2016 11:25:00 07/16/2016 23:59:59 CLS Outpatient AUDELIA CESAR NUTRITION THERAPIST Via [facility] RAD NODULE OF VAGINA [id number] 06/30/2016 08:56:00 06/30/2016 11:01:00 DIS Emergency NATALIA JONES MD Via [facility] ER L FOOT PAIN [id number] 01/31/2016 21:05:00 02/01/2016 01:01:00 DIS Emergency NABIL CASANOVA VERONICA Lin Via [facility] ER ABD PAIN [id number] 07/08/2015 14:23:00 07/08/2015 23:59:59 CLS Outpatient RICA GUILLEN MD Via [facility] RAD ABDOMINAL/PELVIC PAIN [id number] 07/05/2015 15:46:00 07/05/2015 23:59:59 CLS Outpatient RICA GUILLEN MD Via [facility] RAD ABDOMINAL/PELVIC PAIN [id number] 05/08/2013 14:06:00 05/08/2013 23:59:59 CLS Outpatient AURORA BATRES Via [facility] [employer] PHYSICAL [id number] 05/28/2017 15:51:00 Document Registration [id number] 05/28/2017 15:51:00 Document Registration [id number] 05/28/2017 15:51:00 Document Registration [id number] 05/28/2017 15:51:00 Document Registration [id number] 10/22/2011 13:16:00 Document Registration [id number] 04/25/2017 08:35:00 Document Registration [id number] 04/24/2017 20:07:00 Document Registration [id number] 05/14/2017 08:07:00 Document Registration [id number] 07/09/2017 11:20:00 07/09/2017 23:59:59 [facility] [id number] 05/13/2017 14:20:00 Document Registration [id number] 04/27/2017 12:09:00 Document Registration [id number] 07/08/2015 15:11:20 ACT Document Registration [id number] 04/23/2017 19:07:00 Document Registration [id number] 07/24/2016 13:05:00 Document Registration
== END 2018-03-13 10:02 | disposition home or self-care (01) ==
LOC: EDUNIT# 05:44 → ER 05:46
DX: O23.41 Unspecified infection of urinary tract in pregnancy, first trimester (principal); Z77.22 Contact with and (suspected) exposure to environmental tobacco smoke (acute) (chronic); Z3A.08 8 weeks gestation of pregnancy
CPT/HCPCS: 36415; 76801; 81000; 84702; 84703; 87077; 87088; 87186; 87210; 87491; 87591

== ENCOUNTER 2018-06-07 15:13 | Outpatient (CLI) | payer MEDICAID, OTHER ==
[~2018-06-07] VITALS: Ht 170.2 cm; Wt 73.5 kg
[2018-06-07 16:37] VITALS: BP 108/70
[2018-06-07 17:08] LABS: BASOPHILS % (AUTO) 0 % (0-10); EOSINOPHILS % (AUTO) 0 % (0-10); HEMATOCRIT 38 % (35-52); HEMOGLOBIN 12.9 G/DL (11.5-16.0); LYMPHOCYTES # (AUTO) 1.8 X 10^3 (1.0-4.0); LYMPHOCYTES % (AUTO) 20 % (12-44); MEAN CORPUSCULAR HEMOGLOBIN 32 PG (25-34); MEAN CORPUSCULAR HGB CONC 34 G/DL (32-36); MEAN CORPUSCULAR VOLUME 95 FL (80-99); MEAN PLATELET VOLUME 10.3 FL (7.4-10.4); MONOCYTES # (AUTO) 0.7 X 10^3 (0.0-1.0); MONOCYTES % (AUTO) 8 % (0-12); NEUTROPHILS # (AUTO) 6.4 X 10^3 (1.8-7.8); NEUTROPHILS % (AUTO) 72 % (42-75); PLATELET COUNT 292 10^3/uL (130-400); RED CELL DISTRIBUTION WIDTH 13.5 % (10.0-14.5); WHITE BLOOD COUNT 8.9 10^3/uL (4.3-11.0)
[2018-06-07 17:37] LABS: AMPHETAMINE SCREEN, URINE NEGATIVE (NEGATIVE); BARBITURATE SCREEN URINE NEGATIVE (NEGATIVE); BENZODIAZEPINES SCREEN URINE NEGATIVE (NEGATIVE); CANNABINOID SCREEN, URINE NEGATIVE (NEGATIVE); COCAINE SCREEN URINE NEGATIVE (NEGATIVE); METHADONE STAT NEGATIVE (NEGATIVE); METHAMPHETAMINE SCREEN URINE S NEGATIVE (NEGATIVE); OPIATE SCREEN URINE NEGATIVE (NEGATIVE); OXYCODONE STAT NEGATIVE (NEGATIVE); PROPOXYPHENE STAT NEGATIVE (NEGATIVE); TRICYCLIC ANTIDEPRESSANTS SCRE NEGATIVE (NEGATIVE)
[2018-06-09 07:52] LABS: HEPATITIS C ANTIBODY C Non-Reactive (Non-Reactive)
--- NOTE | 2018-06-10 09:31 | Physician Query-Final Dx ---
ALESIA HIGHTOWER 06/10/18 0931: Clinic Account Progress/Dx Physician Query: Please give a diagnosis and the weeks of gestation thank you Date of Service Jun 07, 2018 at 15:13 JIN CARTER DO 06/29/18 1523: Clinic Account Progress/Dx DIAGNOSIS: Diagnosis 22 weeks no care decreased movement history of labor and delivery ALESIA HIGHTOWER Jun 10, 2018 09:31 JIN CARTER DO Jun 29, 2018 15:23
== END 2018-06-07 17:20 | disposition home or self-care (01) ==
LOC: WSo 15:13 → LDRP 15:14 → WSo 17:20
PROVIDERS: ATTEND Obstetrics & Gynecology
DX: O36.8120 Decreased fetal movements, second trimester, not applicable or unspecified (principal); O09.32 Supervision of pregnancy with insufficient antenatal care, second trimester; O09.212 Supervision of pregnancy with history of pre-term labor, second trimester; Z3A.22 22 weeks gestation of pregnancy
CPT/HCPCS: 36415; 80074; 80306; 85025; 86703; 86762; 86780; 86850; 86900; 86901; 87491; 87591; 99212

== ENCOUNTER → 2018-08-08 | Outpatient (CLI) | payer MEDICAID ==
--- NOTE | 2018-08-08 17:22 | Diagnostic Imaging Report ---
INDICATION: Anatomic survey. TECHNIQUE: Multiple real-time grayscale images were obtained over the gravid uterus. COMPARISON: None. FINDINGS: There is a single live intrauterine gestation in the cephalic presentation. Grade 2 anterior placenta. Anatomic measurements correspond to a 30 week, 6 day gestation. Subjectively normal amniotic fluid. JALIL is not documented. heart rate 142 beats per minute. Normal kidneys, bladder, stomach, four-chamber heart, three-vessel cord and spine are documented. The intracranial anatomy is poorly evaluated due to the cephalic presentation. Cord insertion is not well seen. Biometrical measurements are as follows: Biparietal 7.90 cm, age 31 weeks 5 days. Head circumference 28.21 cm, age 31 weeks 0 days. Abdominal circumference 25.57 cm, age 29 weeks 6 days. Femur length 5.81 cm, age 30 weeks 3 days. Sonographic estimate age: 30 weeks 6 days. Sonographic estimated date of delivery: 10/11/18. Estimated Weight: 1531 gm (+/- 224 gm). LMP percentile: 55%. heart rate: 142 beats per minute. number: 1 of 1. IMPRESSION: Unremarkable survey as above. Intracranial anatomy is not well seen due to cephalic presentation. The cord insertion was also not well seen. Dictated by: Dictated on workstation # [id number]
== END ==
LOC: RAD 15:48
PROVIDERS: ATTEND Obstetrics & Gynecology
DX: O09.213 Supervision of pregnancy with history of pre-term labor, third trimester (principal); Z3A.30 30 weeks gestation of pregnancy
CPT/HCPCS: 76805

== ENCOUNTER 2018-09-21 09:00 | Inpatient (IN) | payer MEDICAID ==
[~2018-09-21] VITALS: Ht 175.3 cm; Wt 88.2 kg
[2018-09-21] VITALS (32 sets, daily range): BP systolic 99–163; BP diastolic 55–77
[2018-09-21] MEDS ORDERED: D5 LR IV SOLUTION 1,000 ML IV SCH (09:45)
[2018-09-21] MEDS ORDERED: AMPICILLIN FOR IV USE 2,000 MG in NS (IVPB) 50 ML IV SCH (09:48)
[2018-09-21] MEDS ORDERED: CATHETER FLUSH 10 ML SYR IV PRN ×2 (10:00→16:45)
[2018-09-21 10:13] LABS: BASOPHILS % (AUTO) 0 % (0-10); EOSINOPHILS # (AUTO) 0.1 10^3/uL (0.0-0.3); EOSINOPHILS % (AUTO) 1 % (0-10); HEMATOCRIT 32 % (35-52); HEMOGLOBIN 10.7 G/DL (11.5-16.0); LYMPHOCYTES # (AUTO) 1.4 X 10^3 (1.0-4.0); LYMPHOCYTES % (AUTO) 17 % (12-44); MEAN CORPUSCULAR HEMOGLOBIN 31 PG (25-34); MEAN CORPUSCULAR HGB CONC 33 G/DL (32-36); MEAN CORPUSCULAR VOLUME 93 FL (80-99); MEAN PLATELET VOLUME 10.2 FL (7.4-10.4); MONOCYTES # (AUTO) 0.9 X 10^3 (0.0-1.0); MONOCYTES % (AUTO) 11 % (0-12); NEUTROPHILS # (AUTO) 5.7 X 10^3 (1.8-7.8); NEUTROPHILS % (AUTO) 71 % (42-75); PLATELET COUNT 219 10^3/uL (130-400); RED BLOOD COUNT 3.43 10^6/uL (4.35-5.85); RED CELL DISTRIBUTION WIDTH 13.4 % (10.0-14.5); WHITE BLOOD COUNT 8.1 10^3/uL (4.3-11.0)
[2018-09-21] MEDS ORDERED: SUFENTA 0.6MCG/ML BUPIVA 0.125 0 ML ONE (10:24)
[2018-09-21 10:29] LABS: AMPHETAMINE SCREEN, URINE NEGATIVE (NEGATIVE); BARBITURATE SCREEN URINE NEGATIVE (NEGATIVE); BENZODIAZEPINES SCREEN URINE NEGATIVE (NEGATIVE); CANNABINOID SCREEN, URINE NEGATIVE (NEGATIVE); COCAINE SCREEN URINE NEGATIVE (NEGATIVE); METHADONE STAT NEGATIVE (NEGATIVE); METHAMPHETAMINE SCREEN URINE S NEGATIVE (NEGATIVE); OPIATE SCREEN URINE NEGATIVE (NEGATIVE); OXYCODONE STAT NEGATIVE (NEGATIVE); PROPOXYPHENE STAT NEGATIVE (NEGATIVE); TRICYCLIC ANTIDEPRESSANTS SCRE NEGATIVE (NEGATIVE)
[2018-09-21 10:32] LABS: BACTERIA,URINE FEW /HPF; BILIRUBIN,URINE NEGATIVE (NEGATIVE); CLARITY,URINE CLEAR; COLOR,URINE YELLOW; GLUCOSE, URINE (UA) NEGATIVE (NEGATIVE); KETONES,URINE NEGATIVE (NEGATIVE); LEUKOCYTE ESTERASE ,URINE NEGATIVE (NEGATIVE); NITRITE,URINE NEGATIVE (NEGATIVE); PH,URINE 7 (5-9); PROTEIN,URINE NEGATIVE (NEGATIVE); UROBILINOGEN,URINE NORMAL (NORMAL)
[2018-09-21] MEDS ORDERED: fentaNYL INJECTION 100 MCG/2 ML AMP ONE (10:42)
[2018-09-21] MEDS ORDERED: OXYTOCIN/NORMAL SALINE 500 ML IV SCH ×2 (10:50→10:52)
--- NOTE | 2018-09-21 10:58 | History & Physical ---
History and Physical Date Seen by Provider: Sep 21, 2018 Time Seen by Provider: 10:54 This patient is a 18-year-old white female patient of Dr. Blanco for whom I am covering. She presented at 36 weeks gestation with complaints of contractions pain and pressure. She denies rupture membranes or bleeding. Her previous delivery occurred at 36 weeks gestation. She was found to be for this 5 cm dilated after less than an hour she was 6-7. She was started empirically on ampicillin for GBS prophylaxis and given a single dose of betamethasone 12 mg IM. She is requesting pain medication and that has been allowed an epidural Allergies are none Medications are vitamins Medical social and surgical histories are per the antepartum record of Dr. Blanco HEENT exam is normal Neck is supple no lymphadenopathy no thyromegaly Abdomen is gravid soft nontender nondistended Extreme show clubbing cyanosis. There is no Homans sign. Pelvic exam per the nurse shows a cervix of 7 cm dilated, intact membranes, vertex presentation, 100 percent effaced, +1 to +2 station Laboratory Tests 09/21/18 09:57 Laboratory Tests Test 09/21/18 09:30 09/21/18 09:57 Range/Units Urine Color YELLOW Urine Clarity CLEAR Urine pH 7 5-9 Urine Specific [place] 1.010 L 1.016-1.022 Urine Protein NEGATIVE NEGATIVE Urine Glucose (UA) NEGATIVE NEGATIVE Urine Ketones NEGATIVE NEGATIVE Urine Nitrite NEGATIVE NEGATIVE Urine Bilirubin NEGATIVE NEGATIVE Urine Urobilinogen NORMAL NORMAL MG/DL Urine Leukocyte Esterase NEGATIVE NEGATIVE Urine RBC (Auto) NEGATIVE NEGATIVE Urine RBC NONE /HPF Urine WBC 2-5 /HPF Urine Squamous Epithelial Cells 2-5 /HPF Urine Crystals NONE /LPF Urine Bacteria FEW H /HPF Urine Casts NONE /LPF Urine Mucus SMALL H /LPF Urine Culture Indicated NO Urine Opiates Screen NEGATIVE NEGATIVE Urine Oxycodone Screen NEGATIVE NEGATIVE Urine Methadone Screen NEGATIVE NEGATIVE Urine Propoxyphene Screen NEGATIVE NEGATIVE Urine Barbiturates Screen NEGATIVE NEGATIVE Ur Tricyclic Antidepressants Screen NEGATIVE NEGATIVE Urine Phencyclidine Screen NEGATIVE NEGATIVE Urine Amphetamines Screen NEGATIVE NEGATIVE Urine Methamphetamines Screen NEGATIVE NEGATIVE Urine Benzodiazepines Screen NEGATIVE NEGATIVE Urine Cocaine Screen NEGATIVE NEGATIVE Urine Cannabinoids Screen NEGATIVE NEGATIVE White Blood Count 8.1 4.3-11.0 10^3/uL Red Blood Count 3.43 L 4.35-5.85 10^6/uL Hemoglobin 10.7 L 11.5-16.0 G/DL Hematocrit 32 L 35-52 % Mean Corpuscular Volume 93 80-99 FL Mean Corpuscular Hemoglobin 31 25-34 PG Mean Corpuscular Hemoglobin Concent 33 32-36 G/DL Red Cell Distribution Width 13.4 10.0-14.5 % Platelet Count 219 130-400 10^3/uL Mean Platelet Volume 10.2 7.4-10.4 FL Neutrophils (%) (Auto) 71 42-75 % Lymphocytes (%) (Auto) 17 12-44 % Monocytes (%) (Auto) 11 0-12 % Eosinophils (%) (Auto) 1 0-10 % Basophils (%) (Auto) 0 0-10 % Neutrophils # (Auto) 5.7 1.8-7.8 X 10^3 Lymphocytes # (Auto) 1.4 1.0-4.0 X 10^3 Monocytes # (Auto) 0.9 0.0-1.0 X 10^3 Eosinophils # (Auto) 0.1 0.0-0.3 10^3/uL Basophils # (Auto) 0.0 0.0-0.1 10^3/uL Assessment and plan 36 week gestation with labor and a history of labor and delivery. It appears delivery is eminent. Patient been started on ampicillin for GBS prophylaxis she was given a dose of betamethasone. Vaginal delivery is eminent 36 week labor Allergies and Home Medications Allergies Coded Allergies: No Known Drug Allergies (Unverified , 10/22/11) Home Medications No Active Prescriptions or Reported Meds Patient Home Medication List Home Medication List Reviewed: Yes JANET LOPEZ MD Sep 21, 2018 10:58
[2018-09-21 10:59] LABS: BAND NEUTROPHILS 0 %; BASOPHILS % (MANUAL) 0 %; EOSINOPHILS % (MANUAL) 2 %; LYMPHOCYTES % (MANUAL) 24 %; MONOCYTES % (MANUAL) 6 %; NEUTROPHILS % (MANUAL) 68 %
[2018-09-21 11:00] LABS: RBC MORPH NORMAL
[2018-09-21] MEDS ORDERED: IBUP-1780 PO (11:00)
[2018-09-21] MEDS ORDERED: BENZOCAINE/MENTHOL (DERMOPLAST) 56 ML CAN TP PRN (11:00)
[2018-09-21] MEDS ORDERED: KETOROLAC 30 MG/ML VIAL IV SCH (11:00)
[2018-09-21] MEDS ORDERED: TETANUS,DIPTH,PERTUSS P/F (BOOSTRIX) 0.5 ML VIAL IM ONE (11:00)
[2018-09-21] MEDS ORDERED: ONDANSETRON 4 MG/2 ML (SDV) Z0FRAN IVP PRN (11:00)
[2018-09-21] MEDS ORDERED: MEASLES,MUMPS,RUBELLA 1 EA INJ SC ONE (11:00)
[2018-09-21] MEDS ORDERED: oxyCODONE/APAP 5/325MG (PERCOCET 5) TABLET PO PRN (11:00)
[2018-09-21] MEDS ORDERED: DOCU100C37 PO (11:00)
[2018-09-21] MEDS ORDERED: OXYC1TAB87 PO (11:00)
--- NOTE | 2018-09-21 11:01 | Discharge Instructions ---
Discharge Instructions Discharge Medications New, Converted or Re-Newed RX: RX on Chart Patient Instructions Patient Instructions: As directed Return to The Hospital For: As directed Activity & Diet Discharge Diet: No Restrictions Activity as Tolerated: No Orders-Post D/C & Referrals Follow Up Appt: Call to make follow up appt. for patient with Dr. Blanco in 6 weeks. Activity Per routine post vaginal delivery instructions. Please call in RX to patient pharmacy. Diet as tolerated Patient may shower or tub bathe as desired. JANET LOPEZ MD Sep 21, 2018 11:01
[2018-09-21] MEDS ORDERED: AMPICILLIN FOR IV USE 1,000 MG in NS (IVPB) 50 ML IV SCH (14:00)
[2018-09-21] MEDS ORDERED: LIDOCAINE PF 2% 5 ML (XYLOCAINE) VIAL ONE (16:16)
[2018-09-21] MEDS ORDERED: BUPIVACAINE 0.25% 30 ML (SENSORCAINE) VIAL ONE (16:16)
[2018-09-21] MEDS ORDERED: BUPIVACAINE SPINAL 0.75% (SENSORCAINE) 2 ML AMP ONE (16:17)
[2018-09-21] MEDS ORDERED: LACTATED RINGERS 1,000 ML IV ONE (16:33)
[2018-09-21] MEDS ORDERED: NALOXONE 0.4 MG/ML 1 ML (NARCAN) VIAL IV PRN (16:45)
[2018-09-21] MEDS ORDERED: DOCUSATE SODIUM 100 MG (COLACE) CAP PO SCH (21:00)
--- NOTE | 2018-09-21 21:36 | OPERATIVE REPORT ---
DATE OF SERVICE: 09/21/2018 DELIVERY NOTE The patient delivered by 36-week a spontaneous vaginal delivery of a male with Apgars of 9 and 9 at 1 and 5 minutes. Expected weight of 6 pounds 11 ounces, cord blood gas with pH that is pending and a time of 09/10/2018. The is a male. The was bulb suctioned on delivery of the head and again on completion of delivery. When the cord was pulseless, it was doubly clamped, father cut the cord, the baby was passed to Dr. Hall at the [facility] secondary to prematurity. The placenta delivered spontaneously Call after obtaining cord bloods. Placenta was sent to pathology for permanent section. The cervix, vagina, rectum and perineum were examined and found intact except for several superficial abrasions on the anterior labia bilaterally two on each side. These were hemostatic and did not require repair. Sponge and needle counts were correct on completion of delivery. The estimated blood loss was around 100 mL. The patient remained in the LDR for recovery. The baby remained at this point with the mom. Job ID: [id number] DocumentID: [id number] Dictated Date: 09/21/2018 12:29:08 Gravel Machine Operator Date: 09/21/2018 21:35:52 Dictated By: JANET LOPEZ MD
[2018-09-22] MEDS ORDERED: IBUPROFEN 800 MG (MOTRIN) TAB PO SCH (11:00)
== END 2018-09-21 18:25 | disposition home or self-care (01) | DRG 807 ==
LOC: WSo 09:00 → LDRP 09:04 → WSo 10:04 → UNDOADMIN 10:05 → LDRP 10:05
PROVIDERS: ADMIT Obstetrics & Gynecology; ATTEND Obstetrics & Gynecology
PROC: 10E0XZZ Delivery of Products of Conception, External Approach (ICD-10-PCS; principal; 2018-09-21)
DX: O60.14X0 Preterm labor third trimester with preterm delivery third trimester, not applicable or unspecified (principal); O71.82 Other specified trauma to perineum and vulva; Z3A.36 36 weeks gestation of pregnancy; Z37.0 Single live birth
CPT/HCPCS: 36415; 80306; 81000; 85007; 85027; 86850; 86900; 86901; 99212

== ENCOUNTER 2018-09-27 20:27 | Emergency (ER) | payer MEDICAID ==
[~2018-09-27] VITALS: Ht 175.3 cm; Wt 72.7 kg
[~2018-09-27 20:27] MED LIST changes: +DOCU100C37 PO; +IBUP-1780 PO; +OXYC1TAB87 PO
[2018-09-27] MEDS ORDERED: KETOROLAC 30 MG/ML VIAL IVP STA (22:51)
[2018-09-27] MEDS ORDERED: LACTATED RINGERS 1,000 ML IV ONE (22:51)
[2018-09-27] MEDS ORDERED: PANTOPRAZOLE 40 MG (PROTONIX) VIAL IV ONE (23:00)
[2018-09-27] MEDS ORDERED: ONDANSETRON 4 MG/2 ML (SDV) Z0FRAN IVP ONE (23:00)
[2018-09-27 23:11] LABS: BILIRUBIN,URINE NEGATIVE (NEGATIVE); CLARITY,URINE CLEAR; COLOR,URINE YELLOW; GLUCOSE, URINE (UA) NEGATIVE (NEGATIVE); KETONES,URINE NEGATIVE (NEGATIVE); LEUKOCYTE ESTERASE ,URINE 1+ (NEGATIVE); NITRITE,URINE NEGATIVE (NEGATIVE); PH,URINE 5 (5-9); PROTEIN,URINE 1+ (NEGATIVE); UROBILINOGEN,URINE NORMAL (NORMAL)
[2018-09-27 23:18] LABS: BACTERIA,URINE NEGATIVE /HPF; SQUAMOUS EPITHELIAL CELL,UR RARE /HPF; WBC,URINE RARE /HPF
[2018-09-27 23:22] LABS: BASOPHILS % (AUTO) 0 % (0-10); EOSINOPHILS # (AUTO) 0.2 10^3/uL (0.0-0.3); EOSINOPHILS % (AUTO) 2 % (0-10); HEMATOCRIT 39 % (35-52); HEMOGLOBIN 12.6 G/DL (11.5-16.0); LYMPHOCYTES # (AUTO) 2.1 X 10^3 (1.0-4.0); LYMPHOCYTES % (AUTO) 24 % (12-44); MEAN CORPUSCULAR HEMOGLOBIN 30 PG (25-34); MEAN CORPUSCULAR HGB CONC 33 G/DL (32-36); MEAN CORPUSCULAR VOLUME 93 FL (80-99); MEAN PLATELET VOLUME 10.2 FL (7.4-10.4); MONOCYTES # (AUTO) 0.7 X 10^3 (0.0-1.0); MONOCYTES % (AUTO) 8 % (0-12); NEUTROPHILS # (AUTO) 5.7 X 10^3 (1.8-7.8); NEUTROPHILS % (AUTO) 66 % (42-75); PLATELET COUNT 350 10^3/uL (130-400); RED BLOOD COUNT 4.14 10^6/uL (4.35-5.85); RED CELL DISTRIBUTION WIDTH 12.9 % (10.0-14.5); WHITE BLOOD COUNT 8.6 10^3/uL (4.3-11.0)
[2018-09-27 23:39] LABS: ALANINE AMINOTRANSFERASE 34 U/L (0-55); ALBUMIN 3.9 GM/DL (3.2-4.5); ALKALINE PHOSPHATASE 150 U/L (40-136); AMYLASE 60 U/L (25-125); BILIRUBIN,TOTAL 0.4 MG/DL (0.1-1.0); BUN/CREATININE RATIO 21; CALCIUM 9.6 MG/DL (8.5-10.1); CARBON DIOXIDE 18 MMOL/L (21-32); CHLORIDE 106 MMOL/L (98-107); CREATININE SERUM 0.68 MG/DL (0.60-1.30); GFR ESTIMATED > 60; GLUCOSE 79 MG/DL (70-105); LIPASE 17 U/L (8-78); POTASSIUM 3.8 MMOL/L (3.6-5.0); SODIUM 139 MMOL/L (135-145); TOTAL PROTEIN 7.4 GM/DL (6.4-8.2)
[2018-09-28] MEDS ORDERED: NS 100 ML (IVPB) BAG IV ONE
[2018-09-28] MEDS ORDERED: IOHEXOL 350 MG/ML 100 ML (OMNIPAQUE 350) VIAL IV ONE
[2018-09-28] MEDS ORDERED: RECEIVED CONTRAST (Hold Metformin) IV SCH
[2018-09-28] MEDS ORDERED: PANT40TA2 PO (00:36)
[2018-09-28] MEDS ORDERED: HYOS0.1283 SL (00:36)
[2018-09-28] MEDS ORDERED: ONDA4TAB11 PO (00:36)
--- NOTE | 2018-09-28 00:37 | ED Abdominal Pain ---
General Chief Complaint: Abdominal/GI Problems Stated Complaint: VAG ON 09/21, STILL IN PAIN Nursing Triage Note: intermittant upper abdominal pain s/p vaginal 09/21/18 Sepsis Screen: No Definite Risk Source of Information: Patient Allergies and Home Medications Allergies Coded Allergies: No Known Drug Allergies (Unverified , 10/22/11) Home Medications No Active Prescriptions or Reported Meds Past Slckzyw-Xfuadr-Fuljqo Hx Patient Social History Alcohol Use: Denies Use Recreational Drug Use: No Smoking Status: Former Smoker Type Used: Cigarettes 2nd Hand Smoke Exposure: Yes Recent Foreign Travel: No Contact w/Someone Who Travel: No Recent Infectious Disease Expo: No Recent Hopitalizations: Yes (09/21/18) Immunizations Up To Date Tetanus Booster (TDap): Unknown PED Vaccines UTD: Yes Date of Influenza Vaccine: Jul 25, 2018 Seasonal Allergies Seasonal Allergies: No Past Medical History Surgeries: Yes (EGD) Respiratory: No Cardiac: No Neurological: No : No Reproductive Disorders: No Female Reproductive Disorders: Denies Sexually Transmitted Disease: No HIV/AIDS: No Genitourinary: No Gastrointestinal: Yes (CHRONIC LOWER ABDOMINAL PAIN ) Musculoskeletal: No Endocrine: No HEENT: No Cancer: No Psychosocial: No Integumentary: No Blood Disorders: No Adverse Reaction/Blood Tranf: No Family Medical History Diabetes mellitus (Mother-Gestational diabetes) No Pertinent Family Hx Physical Exam Vital Signs Vital Signs - First Documented 09/27/18 22:41 Temp 96.6 Pulse 83 Resp 18 B/P (MAP) 126/77 (93) Pulse Ox 97 O2 Delivery Room Air Capillary Refill : Less Than 3 Seconds Height/Weight/BMI Height: 5'9.00" Weight: 160lbs. 6.0oz. 72.866646sg; 28.7 BMI Method:Stated Progress/Results/Core Measures Results/Orders Lab Results Laboratory Tests Test 09/27/18 23:05 09/27/18 23:10 Range/Units Urine Color YELLOW Urine Clarity CLEAR Urine pH 5 5-9 Urine Specific [place] 1.025 H 1.016-1.022 Urine Protein 1+ H NEGATIVE Urine Glucose (UA) NEGATIVE NEGATIVE Urine Ketones NEGATIVE NEGATIVE Urine Nitrite NEGATIVE NEGATIVE Urine Bilirubin NEGATIVE NEGATIVE Urine Urobilinogen NORMAL NORMAL MG/DL Urine Leukocyte Esterase 1+ H NEGATIVE Urine RBC (Auto) 4+ H NEGATIVE Urine RBC 5-10 H /HPF Urine WBC RARE /HPF Urine Squamous Epithelial Cells RARE /HPF Urine Crystals NONE /LPF Urine Bacteria NEGATIVE /HPF Urine Casts NONE /LPF Urine Mucus MODERATE H /LPF Urine Culture Indicated NO White Blood Count 8.6 4.3-11.0 10^3/uL Red Blood Count 4.14 L 4.35-5.85 10^6/uL Hemoglobin 12.6 11.5-16.0 G/DL Hematocrit 39 35-52 % Mean Corpuscular Volume 93 80-99 FL Mean Corpuscular Hemoglobin 30 25-34 PG Mean Corpuscular Hemoglobin Concent 33 32-36 G/DL Red Cell Distribution Width 12.9 10.0-14.5 % Platelet Count 350 130-400 10^3/uL Mean Platelet Volume 10.2 7.4-10.4 FL Neutrophils (%) (Auto) 66 42-75 % Lymphocytes (%) (Auto) 24 12-44 % Monocytes (%) (Auto) 8 0-12 % Eosinophils (%) (Auto) 2 0-10 % Basophils (%) (Auto) 0 0-10 % Neutrophils # (Auto) 5.7 1.8-7.8 X 10^3 Lymphocytes # (Auto) 2.1 1.0-4.0 X 10^3 Monocytes # (Auto) 0.7 0.0-1.0 X 10^3 Eosinophils # (Auto) 0.2 0.0-0.3 10^3/uL Basophils # (Auto) 0.0 0.0-0.1 10^3/uL Sodium Level 139 135-145 MMOL/L Potassium Level 3.8 3.6-5.0 MMOL/L Chloride Level 106 98-107 MMOL/L Carbon Dioxide Level 18 L 21-32 MMOL/L Anion Gap 15 H 5-14 MMOL/L Blood Urea Nitrogen 14 7-18 MG/DL Creatinine 0.68 0.60-1.30 MG/DL Estimat Glomerular Filtration Rate > 60 BUN/Creatinine Ratio 21 Glucose Level 79 70-105 MG/DL Calcium Level 9.6 8.5-10.1 MG/DL Corrected Calcium 9.7 8.5-10.1 MG/DL Total Bilirubin 0.4 0.1-1.0 MG/DL Aspartate Amino Transf (AST/SGOT) 20 5-34 U/L Alanine Aminotransferase (ALT/SGPT) 34 0-55 U/L Alkaline Phosphatase 150 H 40-136 U/L Total Protein 7.4 6.4-8.2 GM/DL Albumin 3.9 3.2-4.5 GM/DL Amylase Level 60 25-125 U/L Lipase 17 8-78 U/L My Orders Orders - VERONICA FERRER DO Saline Lock/Iv-Start (09/27/18 22:51) Straight Cath For Spec.-Adult (09/27/18 22:51) Amylase (09/27/18 22:51) Cbc With Automated Diff (09/27/18 22:51) Comprehensive Metabolic Panel (09/27/18 22:51) Lipase (09/27/18 22:51) Ua Culture If Indicated (09/27/18 22:51) Saline Lock/Iv-Start (09/27/18 22:51) Lactated Ringers (Lr 1000 Ml Iv Solution (09/27/18 22:51) Ondansetron Injection (Zofran Injectio (09/27/18 23:00) Ketorolac Injection (Toradol Injection) (09/27/18 22:51) Pantoprazole Injection (Protonix Injecti (09/27/18 23:00) Ct Abdomen/Pelvis W (09/27/18 23:26) Acute Abd Series (09/27/18 23:26) Iohexol Injection (Omnipaque 350 Mg/Ml 1 (09/28/18 00:00) Contrast Received (Contrast Received) (09/28/18 00:00) Ns (Ivpb) (Sodium Chloride 0.9% Ivpb Bag (09/28/18 00:00) Hyoscyamine Sl Tablet (Levsin Sl Tablet) (09/28/18 00:45) Medications Given in ED Current Medications Medications Dose Ordered Sig/Rigoberto Route Start Time Stop Time Status Last Admin Dose Admin Iohexol 100 ml ONCE ONCE IV 09/28/18 00:00 09/28/18 00:01 DC 09/27/18 23:48 100 ML Lactated Ringer's 1,000 ml @ 0 mls/hr Q0M ONCE IV 09/27/18 22:51 09/27/18 22:54 DC 09/27/18 23:11 0 MLS/HR Ondansetron HCl 4 mg ONCE ONCE IVP 09/27/18 23:00 09/27/18 23:01 DC 09/27/18 23:11 4 MG Pantoprazole 40 mg ONCE ONCE IV 09/27/18 23:00 09/27/18 23:01 DC 09/27/18 23:11 40 MG Sodium Chloride 100 ml ONCE ONCE IV 09/28/18 00:00 09/28/18 00:01 DC 09/27/18 23:48 100 ML Vital Signs/I&O 09/27/18 22:41 Temp 96.6 Pulse 83 Resp 18 B/P (MAP) 126/77 (93) Pulse Ox 97 O2 Delivery Room Air Blood Pressure Mean: 93 Departure Impression Primary Impression: Epigastric abdominal pain Disposition: HOME, SELF-CARE Condition: Improved Departure-Patient Inst. Referrals: TU BENJAMIN [place] [facility] [place] Instructions: Acute Abdomen (Belly Pain), Adult (DC) Add. Discharge Instructions: CLEAR LIQUIDS--WATER, BROTH, JELLO, GATORADE WHEN YOUR PAIN AND NAUSEA IS BETTER, ADD BRATS DIET TO CLEAR LIQUIDS--BANANAS, RICE, APPLESAUCE, TOAST, SALTINES FOLLOW UP WITH [facility] [place]. BENJAMIN THIS WEEK FOR FURTHER CARE All discharge instructions reviewed with patient and/or family. Voiced understanding. Scripts Ondansetron (Ondansetron Odt) 4 Mg Tab.rapdis 4 MG PO Q4H for Nausea/Vomiting, #10 TAB Prov: VERONICA FERRER DO 09/28/18 Pantoprazole Sodium (Protonix) 40 Mg Tablet.dr 40 MG PO DAILY, #15 TAB Prov: VERONICA FERRER DO 09/28/18 Hyoscyamine Sulfate (Levsin-Sl) 0.125 Mg Tab.subl 1-2 TAB SL Q4H for Abdominal Pain, #10 TAB Prov: NOY FERRERA K DO 09/28/18 VERONICA FERRER DO Sep 28, 2018 00:36
[2018-09-28] MEDS ORDERED: HYOSCYAMINE 0.125 MG (LEVSIN) TAB PO ONE (00:45)
[2018-09-28 00:46] VITALS: BP 112/79
--- NOTE | 2018-09-28 06:57 | Diagnostic Imaging Report ---
Indication: Abdominal pain. Findings: The heart size is normal. Lungs are clear. There is no pleural effusion or pneumothorax. Mediastinum is unremarkable. Bowel gas pattern is nonspecific. No free air. There are no abnormal abdominal calcifications. The osseous structures are unremarkable. Impression: No acute cardiopulmonary abnormality. Nonspecific bowel gas pattern. Dictated by: Dictated on workstation # [id number]
--- NOTE | 2018-09-28 06:57 | Diagnostic Imaging Report ---
PROCEDURE: CT abdomen and pelvis with contrast. TECHNIQUE: Multiple contiguous axial images were obtained through the abdomen and pelvis after administration of intravenous contrast. INDICATION: Abdominal pain. Comparison made with prior examination 01/31/2016. FINDINGS: The heart size is normal. Lung bases are clear. The liver is normal in size without focal lesions. Gallbladder is unremarkable. No biliary ductal dilatation. Spleen is normal in appearance. The pancreas, adrenal glands and kidneys are unremarkable. The abdominal aorta is nonaneurysmal. Bowel gas pattern is nonspecific. No free air. There is no ascites. There are no focal inflammatory changes. Uterus is somewhat enlarged. There appears to be a large amount of fluid within the endometrial canal. No pelvic mass or adenopathy. The osseous structures are unremarkable. IMPRESSION: Enlargement of the uterus with large amount of fluid in the endometrial canal. This is nonspecific. Further evaluation with pelvic ultrasound is recommended. Dictated by: Dictated on workstation # [id number]
== END 2018-09-28 00:47 | disposition home or self-care (01) ==
LOC: EDUNIT# 20:27 → ER 20:29
DX: O99.89 Other specified diseases and conditions complicating pregnancy, childbirth and the puerperium (principal); R10.13 Epigastric pain; Z87.891 Personal history of nicotine dependence
CPT/HCPCS: 36415; 51701; 74022; 74177; 80053; 81000; 82150; 83690; 85025

== ENCOUNTER 2018-12-11 12:39 | Emergency (ER) | payer MEDICAID ==
[~2018-12-11] VITALS: Ht 175.3 cm; Wt 77.1 kg
[~2018-12-11 12:39] MED LIST changes: +HYOS0.1283 SL; +ONDA4TAB11 PO; +PANT40TA2 PO
[2018-12-11] MEDS ORDERED: bcp (14:22)
--- NOTE | 2018-12-11 14:41 | ED Integumentary General ---
General Chief Complaint: Allergic Reaction Stated Complaint: ITCHY BUMPS ON LEGS AND FEET Nursing Triage Note: pt reports hives starting on knees, elbows et buttocks starting yesterday at work. spreading on legs today. pt had fever of 101 on et Wednesday. She has been exposed to influenza at her job. Source: patient Exam Limitations: no limitations History of Present Illness Date Seen by Provider: Dec 11, 2018 Time Seen by Provider: 14:41 Initial Comments 18-year-old female who presents to emergency room with complaints of hives to her lower extremities and buttocks area that started yesterday. Denies shortness of breath or throat/tongue swelling. Timing/Duration: yesterday Location: extremities Associated Symptoms: rash Allergies and Home Medications Allergies Coded Allergies: No Known Drug Allergies (Unverified , 10/22/11) Patient Home Medication List Home Medication List Reviewed: Yes Review of Systems Review of Systems Constitutional: see HPI; No chills, No fever Skin: see HPI, rash (hives) All Other Systems Reviewed Negative Unless Noted: Yes Past [id number] Hx Past Med/Social Hx: Reviewed Nursing Past Med/Soc Hx Patient Social History Alcohol Use: Denies Use Recreational Drug Use: No Smoking Status: Former Smoker Type Used: Cigarettes 2nd Hand Smoke Exposure: Yes Recent Foreign Travel: No Contact w/Someone Who Travel: No Recent Infectious Disease Expo: No Recent Hopitalizations: Yes (09/21/18) Immunizations Up To Date Tetanus Booster (TDap): Unknown PED Vaccines UTD: Yes Date of Influenza Vaccine: Jul 25, 2018 Seasonal Allergies Seasonal Allergies: No Past Medical History Surgeries: Yes (EGD) Respiratory: No Cardiac: No Neurological: No Last Menstrual Period: Dec 09, 2018 Reproductive Disorders: No Female Reproductive Disorders: Denies Sexually Transmitted Disease: No HIV/AIDS: No Genitourinary: No Gastrointestinal: Yes (CHRONIC LOWER ABDOMINAL PAIN ) Musculoskeletal: No Endocrine: No HEENT: No Cancer: No Psychosocial: No Integumentary: No Blood Disorders: No Adverse Reaction/Blood Tranf: No Family Medical History Reviewed Nursing Family Hx Diabetes mellitus (Mother-Gestational diabetes) No Pertinent Family Hx Physical Exam Vital Signs Vital Signs - First Documented 12/11/18 14:16 Temp 95.9 Pulse 71 Resp 16 B/P (MAP) 98/71 (80) Pulse Ox 100 O2 Delivery Room Air Capillary Refill : Less Than 3 Seconds General Appearance: WD/WN, no apparent distress Cardiovascular: normal peripheral pulses, regular rate, rhythm, no edema, no gallop, no JVD, no murmur Respiratory: chest non-tender, lungs clear, normal breath sounds, no respiratory distress, no accessory muscle use Neurologic/Psychiatric: alert, normal mood/affect, oriented x 3 Skin: normal color, warm/dry Skin Problem Location: lower extremities, other (buttocks) Skin Problem Character: thickening, urticarial, other (hives) Progress/Results/Core Measures Results/Orders My Orders Orders - DAVID BARBOSA Diphenhydramine Tablet (Benadryl Tablet) (12/11/18 14:45) Methylprednisolone Acetate Inj (Depo-Med (12/11/18 14:45) Im/Sub-Q Injection Non-Ab Ed (12/11/18 ) Vital Signs/I&O 12/11/18 12/11/18 14:16 15:24 Temp 95.9 Pulse 71 0 Resp 16 0 B/P (MAP) 98/71 (80) 0/0 (0) Pulse Ox 100 0 O2 Delivery Room Air Blood Pressure Mean: 80 Departure Impression Primary Impression: Contact dermatitis Disposition: 01 HOME, SELF-CARE Condition: Stable/Unchanged Departure-Patient Inst. Decision time for Depature: 14:56 Referrals: NO,LOCAL PHYSICIAN (PCP/Family) Primary Care Physician Patient Instructions: Skin Rash (DC) Add. Discharge Instructions: You may use Benadryl 25 mg every 4 hours as needed for hives and itching. Follow -up with your primary care provider within 1 week if no improvement. Return back to the emergency room for worsening symptoms, shortness of breath, tongue or throat swelling, or any other concerns as needed. All discharge instructions reviewed with patient and/or family. Voiced understanding. DAVID BARBOSA Dec 11, 2018 14:41
[2018-12-11] MEDS ORDERED: methylPREDNISolone 40 MG/ML (DEPO MEDROL) VIAL IM ONE (14:45)
[2018-12-11] MEDS ORDERED: diphenhydrAMINE 25 MG TAB (BENADRYL) PO ONE (14:45)
[2018-12-11 15:24] VITALS: BP 0/0
== END 2018-12-11 15:24 | disposition home or self-care (01) ==
LOC: EDUNIT# 12:39 → ER 12:40
DX: L25.9 Unspecified contact dermatitis, unspecified cause (principal); Z87.891 Personal history of nicotine dependence
CPT/HCPCS: 96372; 99284

== ENCOUNTER 2019-02-05 23:41 | Emergency (ER) | payer SELFPAY ==
[~2019-02-05] VITALS: Ht 175.3 cm; Wt 74.8 kg
[~2019-02-05 23:41] MED LIST changes: +bcp
[2019-02-06 00:07] LABS: BILIRUBIN,URINE NEGATIVE (NEGATIVE); CLARITY,URINE CLEAR; COLOR,URINE YELLOW; GLUCOSE, URINE (UA) NEGATIVE (NEGATIVE); KETONES,URINE NEGATIVE (NEGATIVE); LEUKOCYTE ESTERASE ,URINE 3+ (NEGATIVE); NITRITE,URINE NEGATIVE (NEGATIVE); PH,URINE 6 (5-9); PROTEIN,URINE 1+ (NEGATIVE); UROBILINOGEN,URINE 1 MG/DL (NORMAL)
[2019-02-06 00:37] LABS: BACTERIA,URINE FEW /HPF; HYALINE CASTS, URINE 0-2 /LPF
--- NOTE | 2019-02-06 00:45 | NUR ---
Physician notified this RN that pt refused pelvic exam at this time.
--- NOTE | 2019-02-06 00:51 | ED GU-Female ---
General Chief Complaint: - Urinary Stated Complaint: VAGINAL PAIN Nursing Triage Note: Pt arrived by private vehicle with chief complaint of vaginal pain. 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 Then 3 days ago she started to have issues again. Pt had baby 4 months ago and had her period 2 weeks ago. Pt stated it hurts when sitting and standing and has constant pain. Nursing Sepsis Screen: No Definite Risk Source: patient Exam Limitations: no limitations History of Present Illness Date Seen by Provider: February 06, 2019 Time Seen by Provider: 00:02 Initial Comments This 18-year-old young lady presents to the emergency room with complaints of pain in the vaginal area for about the past 3 days. She denies any vaginal discharge or dysuria. She has had a little increased urinary frequency. She also has some pain with intercourse. 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 She has seen a specialist for this but she does not recall who the specialist was. She states surgical intervention was recommended but she did not follow-up. She does also have a history of bladder infections. She denies any history of vaginal infections. Her partner is with her and denies any symptoms. She is 4 months . LMP was 2 weeks ago. Allergies and Home Medications Allergies Coded Allergies: No Known Drug Allergies (Unverified , 10/22/11) Patient Home Medication List Home Medication List Reviewed: Yes Review of Systems Review of Systems Constitutional: no symptoms reported EENTM: no symptoms reported Respiratory: no symptoms reported Cardiovascular: no symptoms reported Gastrointestinal: no symptoms reported Genitourinary: see HPI : No Musculoskeletal: see HPI Skin: no symptoms reported Psychiatric/Neurological: No Symptoms Reported Endocrine: No Symptoms Reported Hematologic/Lymphatic: No Symptoms Reported Past Rsztbnr-[id number]-Yoikcw Hx Patient Social History Alcohol Use: Denies Use Recreational Drug Use: Yes (Marijuana) Drug of Choice: mariguana Type Used: Cigarettes 2nd Hand Smoke Exposure: Yes Recent Foreign Travel: No Contact w/Someone Who Travel: No Recent Infectious Disease Expo: No Recent Hopitalizations: Yes (09/21/18) Physical Abuse: No Sexual Abuse: No Mistreated: No Fear: No Immunizations Up To Date Tetanus Booster (TDap): Unknown PED Vaccines UTD: Yes Date of Influenza Vaccine: Jul 25, 2018 Seasonal Allergies Seasonal Allergies: No Past Medical History Surgeries: Yes (EGD) Respiratory: No Cardiac: No Neurological: No : No Last Menstrual Period: Jan 23, 2019 Reproductive Disorders: No Female Reproductive Disorders: Denies Sexually Transmitted Disease: No HIV/AIDS: No Genitourinary: Yes (urethral diverticulum) Gastrointestinal: Yes (CHRONIC LOWER ABDOMINAL PAIN ) Musculoskeletal: No Endocrine: No HEENT: No Cancer: No Psychosocial: No Integumentary: No Blood Disorders: No Adverse Reaction/Blood Tranf: No Family Medical History Diabetes mellitus (Mother-Gestational diabetes) No Pertinent Family Hx Physical Exam Vital Signs Vital Signs - First Documented 02/05/19 23:56 Temp 97.7 Pulse 90 Resp 18 B/P (MAP) 123/86 (98) Pulse Ox 98 O2 Delivery Room Air Capillary Refill : Less Than 3 Seconds Height, Weight, BMI Height: 5'9.00" Weight: 165lbs. 0oz. 74.187671im; 28.7 BMI Method:Stated General Appearance: WD/WN, no apparent distress HEENT: normal ENT inspection Neck: normal inspection Cardiovascular: regular rate, rhythm, no edema, no murmur Respiratory: lungs clear, normal breath sounds, no respiratory distress, no accessory muscle use Gastrointestinal: normal bowel sounds, non tender, soft Extremities: normal inspection, no pedal edema Neurologic/Psychiatric: alert, normal mood/affect, oriented x 3 Skin: normal color, warm/dry Progress/Results/Core Measures Suspected Sepsis Recent Fever Within 48 Hours: No Infection Criteria Present: None New/Unexplained Altered Menta: No Sepsis Screen: No Definite Risk SIRS Temperature:97.7 Pulse: 90 Respiratory Rate: 18 Blood Pressure 123 /86 Mean: 98 Results/Orders Lab Results Laboratory Tests Test 02/06/19 00:00 Range/Units Urine Color YELLOW Urine Clarity CLEAR Urine pH 6 5-9 Urine Specific [place] 1.020 1.016-1.022 Urine Protein 1+ H NEGATIVE Urine Glucose (UA) NEGATIVE NEGATIVE Urine Ketones NEGATIVE NEGATIVE Urine Nitrite NEGATIVE NEGATIVE Urine Bilirubin NEGATIVE NEGATIVE Urine Urobilinogen 1 NORMAL MG/DL Urine Leukocyte Esterase 3+ H NEGATIVE Urine RBC (Auto) NEGATIVE NEGATIVE Urine RBC NONE /HPF Urine WBC 2-5 /HPF Urine Crystals NONE /LPF Urine Bacteria FEW H /HPF Urine Casts PRESENT /LPF Urine Hyaline Casts 0-2 H /LPF Urine Mucus MODERATE H /LPF Urine Culture Indicated NO My Orders Orders - TESHA MALDONADO MD Ua Culture If Indicated (02/06/19 00:02) Urine Bedside (02/06/19 00:02) Urine Culture (02/06/19 00:47) Vital Signs/I&O 02/05/19 02/06/19 23:56 01:03 Temp 97.7 96.5 Pulse 90 84 Resp 18 20 B/P (MAP) 123/86 (98) 114/79 (91) Pulse Ox 98 97 O2 Delivery Room Air Room Air Capillary Refill : Less Than 3 Seconds Blood Pressure Mean: 98 Progress Note : Progress Note UA was not strongly suggestive of infection. Patient was offered a pelvic exam but declines. She would like to follow-up with Dr. Carter for her pelvic exam. Patient's abdomen was nontender. Vital signs were unremarkable. Departure Impression Primary Impression: Vaginal pain Additional Impression: Urinary frequency Disposition: 01 HOME, SELF-CARE Condition: Stable Departure-Patient Inst. Referrals: NO,LOCAL PHYSICIAN (PCP/Family) Primary Care Physician Patient Instructions: Acute Pelvic Pain Add. Discharge Instructions: Follow-up with Dr. Carter or Dr. Alejandra as soon as possible. A pelvic exam may be appropriate at her discretion. Review the urine culture result with Dr. Carter or Dr. Alejandra. Antibiotics may be necessary if urinary tract infection is found. Return to care if symptoms worsen. All discharge instructions reviewed with patient and/or family. Voiced understanding. Copy Copies To 1: JIN CARTER DO Copies To 2: MARLI ALEJANDRA MD, JOSHUA T MD February 06, 2019 00:51
[2019-02-06 01:03] VITALS: BP 114/79
== END 2019-02-06 01:03 | disposition home or self-care (01) ==
LOC: EDUNIT# 23:41 → ER 23:43
DX: R10.2 Pelvic and perineal pain (principal); R35.0 Frequency of micturition; F12.10 Cannabis abuse, uncomplicated; Z87.448 Personal history of other diseases of urinary system; Z77.22 Contact with and (suspected) exposure to environmental tobacco smoke (acute) (chronic)
CPT/HCPCS: 81000; 84703; 87088; 99282

== ENCOUNTER 2020-04-03 16:02 | Emergency (ER) | payer SELFPAY ==
[~2020-04-03] VITALS: Ht 175 cm; Wt 68.0 kg
--- NOTE | 2020-04-03 16:25 | ED GU-Female ---
General Chief Complaint: OB < 20 WEEKS Stated Complaint: BLOOD CLOTS, 10 WEEKS Nursing Triage Note: ARRIVED VIA AMB TO ROOM 09 WITH COMPLAINTS OF VAGINAL BLEEDING WITH CLOTS SINCE WEDNESDAY. STATES SHE IS AND HER LMP WAS AT THE END OF NOVEMBER. HAS NOT BEEN TO A DR WITH THIS . Nursing Sepsis Screen: No Definite Risk Source: patient Exam Limitations: no limitations History of Present Illness Date Seen by Provider: Apr 03, 2020 Time Seen by Provider: 16:23 Initial Comments To ER with lower abdominal cramping vaginal bleeding passing clots for one week. This will be her 6th , she's had 3 previous miscarriages 2 live births. She believes she is about 10 weeks' gestation lower abdominal cramping has improved but she passed a large clot earlier today and wanted evaluation. Timing/Duration: constant Severity/Quality: cramping Location: suprapubic Radiation: none Activities at Onset: none Prior Genitourinary Problems: none Associated Symptoms: denies symptoms Allergies and Home Medications Allergies Coded Allergies: No Known Drug Allergies (Unverified , 10/22/11) Patient Home Medication List Home Medication List Reviewed: Yes Review of Systems Review of Systems Constitutional: see HPI EENTM: see HPI Respiratory: no symptoms reported Cardiovascular: no symptoms reported Genitourinary: no symptoms reported Musculoskeletal: no symptoms reported Skin: no symptoms reported Psychiatric/Neurological: No Symptoms Reported Endocrine: No Symptoms Reported Hematologic/Lymphatic: No Symptoms Reported Past Ygsajsp-Qwapdn-Jxhtjz Hx Patient Social History Alcohol Use: Denies Use Recreational Drug Use: Yes Drug of Choice: POT Smoking Status: Never a Smoker Type Used: Cigarettes 2nd Hand Smoke Exposure: Yes Recent Foreign Travel: No Contact w/Someone Who Travel: No Recent Infectious Disease Expo: No Recent Hopitalizations: Yes (09/21/18) Immunizations Up To Date Tetanus Booster (TDap): Unknown PED Vaccines UTD: Yes Date of Influenza Vaccine: Jul 25, 2018 Seasonal Allergies Seasonal Allergies: No Past Medical History Surgeries: Yes (EGD) Respiratory: No Cardiac: No Neurological: No : Yes Reproductive Disorders: No Female Reproductive Disorders: Denies Sexually Transmitted Disease: No HIV/AIDS: No Genitourinary: Yes (urethral diverticulum) Gastrointestinal: Yes (CHRONIC LOWER ABDOMINAL PAIN ) Musculoskeletal: No Endocrine: No HEENT: No Cancer: No Psychosocial: No Integumentary: No Blood Disorders: No Adverse Reaction/Blood Tranf: No Family Medical History Diabetes mellitus (Mother-Gestational diabetes) No Pertinent Family Hx Physical Exam Vital Signs Vital Signs - First Documented 04/03/20 16:05 Temp 37.0 Pulse 111 Resp 16 B/P (MAP) 141/91 (108) Pulse Ox 99 O2 Delivery Room Air Capillary Refill : Less Than 3 Seconds Height, Weight, BMI Height: 5'9.00" Weight: 165lbs. 0oz. 74.662183pg; 22.00 BMI Method:Stated General Appearance: WD/WN, no apparent distress, other (alert and oriented, hemodynamically stable) HEENT: PERRL/EOMI, normal ENT inspection Neck: non-tender, full range of motion Respiratory: no respiratory distress, no accessory muscle use Gastrointestinal: normal bowel sounds, non tender, soft Extremities: normal range of motion, non-tender Neurologic/Psychiatric: alert, normal mood/affect, oriented x 3 Skin: normal color, warm/dry Progress/Results/Core Measures Suspected Sepsis Recent Fever Within 48 Hours: No Infection Criteria Present: None New/Unexplained Altered Menta: No Sepsis Screen: No Definite Risk SIRS Temperature: Pulse: 111 Respiratory Rate: 16 Laboratory Tests 04/03/20 16:52: Blood Pressure 141 /91 Mean: 108 Laboratory Tests 04/03/20 16:52: Results/Orders Lab Results Laboratory Tests Test 04/03/20 16:52 Range/Units My Orders Orders - ADRIAN BECKER APRN Ob<14 Wks Sngle W/Transvag (04/03/20 16:03) Cbc With Automated Diff (04/03/20 16:03) Ua Culture If Indicated (04/03/20 16:03) Hcg,Quantitative (04/03/20 16:03) Vital Signs/I&O 04/03/20 16:05 Temp 37.0 Pulse 111 Resp 16 B/P (MAP) 141/91 (108) Pulse Ox 99 O2 Delivery Room Air Capillary Refill : Less Than 3 Seconds Blood Pressure Mean: 108 Departure Impression Primary Impression: Spontaneous miscarriage Disposition: 01 HOME, SELF-CARE Condition: Stable Departure-Patient Inst. Decision time for Depature: 17:08 Referrals: SIMA KHAN DENNIS G MD KOEHN, DANIEL J MD NO,LOCAL PHYSICIAN (PCP) Primary Care Physician JIN CARTER DO Patient Instructions: Miscarriage (DC) Add. Discharge Instructions: 1. Follow-up with either your regular doctor or one of the doctors listed this week for recheck. Return to ER for any uncontrollable heavy bleeding, intolerable pain or fevers. ARDIAN BECKER APRN Apr 03, 2020 16:25
--- NOTE | 2020-04-03 17:00 | Diagnostic Imaging Report ---
INDICATION: 1st trimester vaginal bleeding. TECHNIQUE: OB sonography was performed with transabdominal and transvaginal views. FINDINGS: The uterus measures 8.1 x 4.5 x 7.2 cm. The endometrium appears thickened and irregular but a definite gestational sac is not seen. There is an ill-defined hypoechoic area which is not definitive. This may represent blood. The right ovary measures 2.9 x 1.9 x 2.3 cm and appears normal. The left ovary measures 2.9 x 1.2 x 1.7 cm and appears normal. There is no free fluid. IMPRESSION: Thickened endometrium but no definitive gestational sac visualized. A viable cannot be confirmed or entirely excluded. Recommend followup beta-hCG levels with followup sonography as indicated. The adnexa appear unremarkable with no free fluid. Dictated by: Dictated on workstation # [id number]
[2020-04-03 17:03] LABS: BASOPHILS % (AUTO) 0 % (0-10); EOSINOPHILS % (AUTO) 0 % (0-10); HEMATOCRIT 34 % (35-52); HEMOGLOBIN 11.8 G/DL (11.5-16.0); LYMPHOCYTES # (AUTO) 2.2 X 10^3 (1.0-4.0); LYMPHOCYTES % (AUTO) 31 % (12-44); MEAN CORPUSCULAR HEMOGLOBIN 32 PG (25-34); MEAN CORPUSCULAR HGB CONC 35 G/DL (32-36); MEAN CORPUSCULAR VOLUME 92 FL (80-99); MEAN PLATELET VOLUME 9.8 FL (7.4-10.4); MONOCYTES # (AUTO) 0.5 X 10^3 (0.0-1.0); MONOCYTES % (AUTO) 7 % (0-12); NEUTROPHILS # (AUTO) 4.3 X 10^3 (1.8-7.8); NEUTROPHILS % (AUTO) 61 % (42-75); PLATELET COUNT 280 10^3/uL (130-400); RED CELL DISTRIBUTION WIDTH 12.5 % (10.0-14.5); WHITE BLOOD COUNT 7.1 10^3/uL (4.3-11.0)
[2020-04-03 17:20] LABS: BILIRUBIN,URINE NEGATIVE (NEGATIVE); CLARITY,URINE CLEAR; COLOR,URINE YELLOW; GLUCOSE, URINE (UA) NEGATIVE (NEGATIVE); KETONES,URINE NEGATIVE (NEGATIVE); LEUKOCYTE ESTERASE ,URINE NEGATIVE (NEGATIVE); NITRITE,URINE NEGATIVE (NEGATIVE); PH,URINE 6.5 (5-9); PROTEIN,URINE NEGATIVE (NEGATIVE)
[2020-04-03 17:28] LABS: BACTERIA,URINE NEGATIVE /HPF
[2020-04-03 17:45] VITALS: BP 115/87
--- OUTSIDE RECORDS SUMMARY | 2020-04-03 20:25 | XMS REPORT ---
Author Author [email or web address] [facility] [employer] Address [address] [address] Care Team Providers Care Auditor Name Role Phone RICA GUILLEN Oscar Unavailable [facility] Unavailable [phone] [facility] Unavailable [place], [place] N Unavailable [place], [place] Unavailable [place], [place] Unavailable NO, LOCAL PHYSICIAN Unavailable Unavailable [place] Unavailable [place] Unavailable VERONICA FERRER DO Unavailable Unavailable TEA CESPEDES Unavailable Unavailable ROBERT LANDRUM, NATALIA De Oliveira Unavailable Unavailable AUDELIA CESAR APRN Unavailable Unavailable JOHNNY CARSON Unavailable Unavailable TESHA MALDONADO MD Unavailable Unavailable NO, LOCAL PHYSICIAN Unavailable Unavailable NO, LOCAL PHYSICIAN PCP Unavailable JULIANNA LANDRUM, SHER Lin Unavailable Unavailable TESHA MALDONADO MD Unavailable Unavailable PCP, NONE Unavailable Unavailable ADRIAN BECKER APRN Unavailable Unavailable Unavailable Unavailable Unavailable Unavailable Unavailable Unavailable Unavailable Unavailable Allergies The data below is from unstructured sourcesNo known allergies.No known allergies.No known allergies.No known allergies.No known allergies.No known allergies.No known allergies.No known allergies.No known allergies.No known allergies.No known allergies.No known allergies.No known all ergies. No Information No Information No Information No Information No Information No InformationNo known allergies.No known allergies.No known allergies.No known allergies. No Information No InformationNo known allergies.No known allergies.No known allergies.No known allergies. Encounters Encounter Date Encounter Type Encounter Diagnosis Care Provider Facility Start: Emergency department ADRIAN BECKER APRN [facility] 04-03-2020 patient visit [facility] End: 04-03-2020 Start: Patient encounter NONE PCP [facility] 04-14-2019 procedure [facility] ([id number]) Start: Patient encounter NONE PCP [facility] 04-12-2019 [facility] ([id number]) Start: Patient encounter NA NA [facility] 04-12-2019 procedure [facility] ([id number]) Start: Emergency department TESHA MALDONADO MD [facility] [address] [facility] 02-06-2019 patient visit [facility] ([id number]) End: 02-06-2019 Start: Patient encounter TESHA MALDONADO MD [facility] [address] 02-06-2019 procedure [facility] ([id number]) Start: Emergency department TESHA MALDONADO MD [facility] 02-05-2019 patient visit [facility] ([id number]) End: 02-05-2019 Start: Patient encounter NONE PCP [facility] 01-10-2019 procedure [facility] ([id number]) Start: Emergency department DAVID BARBOSA Not Avai lable ([id number]) 12-11-2018 patient visit End: 12-11-2018 Start: Emergency department VERONICA FERRER Not Avai lable ([id number]) 09-27-2018 patient visit End: 09-28-2018 Start: Patient encounter VERONICA FERRER DO Not Availab le ([id number]) 09-27-2018 procedure Start: Evaluation and JANET LOPEZ Not Adrianna ilable ([id number]) 09-21-2018 management of Work Phone: inpatient End: 09-21-2018 Start: Patient encounter JANET LOPEZ Not Av ailable ([id number]) 09-21-2018 procedure End: 09-21-2018 Start: Patient encounter JIN CARTER DO Not Availab le ([id number]) 08-08-2018 procedure Start: Patient encounter JIN SHAW DO Not Availab le ([id number]) 06-07-2018 procedure End: 06-07-2018 Start: Patient encounter 03-13-2018 procedure Start: Patient encounter NA NA Not Availab le ([id number]) 03-04-2018 procedure Start: Patient encounter DONNELL BETANCOURT DO Not A vailable ([id number]) 07-03-2017 procedure End: 07-05-2017 Start: Patient encounter MARLI ALEJANDRA MD Not Avail able ([id number]) 06-05-2017 procedure End: 06-06-2017 Start: Patient encounter AMRLI ALEJANDRA MD Not Avail able ([id number]) 05-05-2017 procedure Start: Patient encounter NATALIA JONES MD Not Av ailable ([id number]) 04-26-2017 procedure Start: Patient encounter AUDELIA CESAR Not Availab le ([id number]) 07-20-2016 procedure Start: Patient encounter AUDELIA CESAR Not Availab le ([id number]) 07-16-2016 procedure Start: Emergency department SHER LEVINE MD Not Av ailable ([id number]) 10-22-2011 patient visit End: 10-22-2011 Medical Equipment No Information Goals No Information Immunizations The data below is from unstructured sourcesNo immunization records.No immunization records.No immunization records.No immunization records.No immunization records. No Known Immunizations No Known Immunizations Interventions No Information Medications Medication Drug Dates Sig Sig (Original) Class(es) (Normalized) acetaminophen 325 mg / Opioid Start: Oxycodo ne Hcl/Acetaminophen (Percocet oxyCODONE hydrochloride Agonist 09-21-2018 5-325 Mg Tablet) 1 Each Tablet, 1 Tab 5 mg oral tablet Oral Every 4HRS as needed for (2 sources) End: Pain-Moderate 09/21 Discontinued 09-27-2018 Bcp Bcp NOT APPLICABLE (1 source) docusate sodium 100 mg Start: Docusate Sodiu m 100 Mg Capsule, 100 Mg oral capsule 09-21-2018 Oral Twice A Day Discontinued (2 sources) End: 09-27-2018 hyoscyamine sulfate Start: take 1-2 Hyoscyami ne Sulfate (Levsin-Sl) 0.125 Mg 0.125 mg sublingual 09-28-2018 tablets under Tab.subl, 1-2 Tab Sublingual Every 4HRS tablet the tongue for Abdominal Pain 09/28/18 Discontinued (2 sources) End: every four 12-11-2018 hours ondansetron 4 mg Serotonin- Start: Ondansetron ( Ondansetron Odt) 4 Mg disintegrating oral 3 Receptor 09-28-2018 Tab.rapdis , 4 Mg Oral Every 4HRS for tablet Antagonist Nausea/Vomiting 09/28/18 Discontinued (2 sources) End: 12-11-2018 pantoprazole 40 mg Proton Start: Pantoprazol e Sodium (Protonix) 40 Mg delayed release oral Pump 09-28-2018 Tablet.dr , 40 Mg Oral Daily 09/28/18 tablet Inhibitor Discontinued (2 sources) End: 12-11-2018 Payers No Information Plan of Treatment Date Care Activity Detail Author Start: Computed tomography of Computed tomography of [place] [facility] 09-27-2018 abdomen and pelvis with abdomen and pelvis [facility] ([id number]) contrast contrast Start: Diagnostic radiography of Acute abdomen x-ray series [place] [facility] 09-27-2018 [facility] ([id number]) Problems Active Problems Problem Problem Date Last Documented Episodic/Chr Provider Classificati Recorded Date onic on Abdominal Lower abdominal pain, unspecified ; Episodic SHER pain Translations: [Abdominal pain] ROBERTO SRINIVASAN MD (27 sources) Genitourinar Dysuria ; Translations: [Frequency Episodic JOHNNY YAMILETH y symptoms of micturition] and ill-defined conditions (20 sources) Other Anemia complicating the puerperium C hronic complication s of ; puerperium affecting management of mother (9 sources) Other Decreased movements, second Ep isodic complication trimester, not applicable o r s of unspecified (4 sources) Other Supervision of with Episod ic complication history of pre-term labor, second s of trimester (4 sources) Other Supervision of with Episod ic complication insufficient care , second s of trimester (4 sources) Residual Contact with and (suspected) Episodi c codes; exposure to environmental t obacco unclassified smoke (acute) (chronic) ; (18 sources) Translations: [8 WEEKS GEST ATION OF ] Residual 22 weeks gestation of Epis odic codes; unclassified (4 sources) Substance-re Cannabis abuse, uncomplicated Chronic TESHA marroquin MD (4 sources) Past or Other Problems Problem Problem Date Last Documented Episodic/Chr Provider Classificati Recorded Date onic on Allergic Contact dermatitis ; Translations: Episodic DAVID reactions [Urticaria, unspecified] BERNOT (3 sources) Deficiency Anemia, unspecified Episodic and other anemia (9 sources) E Codes: Exposure to other specified Episodic NATALIA Natural/envi factors, initial encounter ROBERT maria (15 sources) E Codes: Tennis court as the place of Episodic NATALIA Place of occurrence of the external cause ST YANELI LANDRUM occurrence (15 sources) E Codes: Struck by tennis racquet, initial Ep isodic Struck by; encounter against (6 sources) E Codes: Activity, racquet and hand sports ; Episodic NATALIA Unspecified Translations: [OTHER EXTERNAL CAUSE ROBERT LANDRUM (20 sources) STATUS] Precipitate labor Episodic distress and abnormal forces of labor (9 sources) Gastrointest Hematemesis Episodic NATALIA inal ROBERT LANDRUM hemorrhage (13 sources) OB-related First degree perineal laceration Epi sodic trauma to during delivery ; Translati ons: perineum and [Other specified trauma to perineum vulva and vulva] (15 sources) Other Abnormality in heart rate and Episodic complication rhythm complicating labor a nd s of ; delivery puerperium affecting management of mother (9 sources) Other Unspecified infection of urinary Episodic VERONICA NABIL DO complication tract in , first t rimester s of (23 sources) Other Other specified related Episodic TEA complication conditions, second trimester LAURA APARICIO s of (11 sources) Other Unspecified infection of urinary Episodic TEA complication tract in , second LAURA Wilson A s of trimester (11 sources) Other Other specified diseases and Episodic MATTHIAS JULIO complication conditions complicating , MD s of childbirth and the puerperi um (13 sources) Other Diseases of the digestive system Episodic NATALIA complication complicating , second MARIANO BENNETT MD s of trimester (9 sources) Other Other specified related Episodic MARLI complication conditions, third trimester [place] De Oliveira s of (11 sources) Other Supervision of with Episodic MARLI complication insufficient care, third [place] LANDRUM s of trimester (11 sources) Other Supervision of with Episodic JIN CARTER complication history of pre-term labor, third DO s of trimester (3 sources) Other Unspecified injury of left ankle, Episodic NATALIA injuries and initial encounter ROBERT LANDRUM conditions due to external causes (15 sources) Other Paresthesia of skin Episodic nervous system disorders (6 sources) Residual Less than 8 weeks gestation of Episodic VERONICA NABIL DO codes; unclassified (15 sources) Residual 18 weeks gestation of Episodic TEA codes; LAURA APARICIO unclassified (11 sources) Residual 35 weeks gestation of Epis odic codes; unclassified (9 sources) Residual 8 weeks gestation of Episodic MATTHIAS JULIO codes; unclassified (2 sources) Residual 26 weeks gestation of Episodic NATALIA codes; ROBERT LANDRUM unclassified (9 sources) Residual 31 weeks gestation of Episodic MARLI codes; [place] LANDRUM unclassified (11 sources) Residual 27 weeks gestation of Epis odic codes; unclassified (7 sources) Residual 30 weeks gestation of Episodic JIN CARTER codes; DO unclassified (3 sources) Residual 36 weeks gestation of Episodic JANET codes; JOHN henryified (6 sources) Screening Personal history of nicotine Episodic VERONICA NABIL DO and history dependence of mental health and substance abuse codes (4 sources) Substance-re Drug use complicating , Episodic MARLI lated third trimester [place] LANDRUM disorders (11 sources) Superficial Contusion of right lower leg, Episod ic injury; initial encounter contusion (6 sources) Procedures Date Procedure Procedure Detail Performing Cl inician Start: Delivery of JANET MIGUEL AM 09-21-2018 Products of Work Phone: Conception, External Approach DELIVERY OF PRODUCTS OF CONCEPTION, EXTE Repair Perineum Skin, External Approach Results Test Name Value Interpreta Reference Facilit Date tion Range y Time laboratory on 2020-04-03 Bacteria LM Ql Negative Invalid PENDING (Urine sed) Interpreta LOCATIO 020 tion Code N [facility] 13:17-0 ([id number]) 400 Basophils (Bld) 0.0 10*3/uL Negative 0.0-0.1 PENDING 04-03 [#/Vol] 10*3/uL LOCATIO 020 N [facility] 12:52-0 ([id number]) 400 Basophils/100 WBC 0 % Negative 0-10 % PENDING 04-03 (Bld) LOCATIO 020 [facility] 12:52-0 ([id number]) 400 Bilirubin Ql (U) Negative Invalid NEGATIVE PENDING Interpreta LOCATIO 020 tion Code [facility] 13:17-0 ([id number]) 400 Casts LM Ql (Urine NONE Invalid PENDING sed) Interpreta LOCATIO 020 tion Code N [facility] 13:17-0 ([id number]) 400 Clarity (U) CLEAR Invalid PENDING Interpreta LOCATIO 020 tion Code N [facility] 13:17-0 ([id number]) 400 Color (U) YELLOW Invalid PENDING Interpreta LOC[facility]IO 020 tion Code N [facility] 13:17-0 ([id number]) 400 Crystals LM Ql NONE Invalid PENDING (Urine sed) Interpreta LOCATIO 020 tion Code N [facility] 13:17-0 ([id number]) 400 Eosinophils (Bld) 0.0 10*3/uL Negative 0.0-0.3 PENDING 04-28 [#/Vol] 10*3/uL LOCATIO 020 N [facility] 12:52-0 ([id number]) 400 Eosinophils/100 WBC 0 % Negative 0-10 % PENDING 04-28 (Bld) LOCATIO 020 N [facility] 12:52-0 ([id number]) 400 Epithelial 2-5 Invalid PENDING cells.squamous LM Ql Interpreta LOCATIO 020 (Urine sed) tion Code N [facility] 13:17-0 ([id number]) 400 Erythrocyte 12.5 % Negative 10.0-14.5 PENDING distribution width % LOCATIO 020 (RBC) [Ratio] N [facility] 12:52-0 ([id number]) 400 Glucose Auto test Negative Invalid NEGATIVE PENDING 04-03 strip Ql (U) Interpreta LOCATIO 020 tion Code N [facility] 13:17-0 ([id number]) 400 HCG Qn 307 m[IU]/mL High <5 PENDING m[iU]/mL LOCATIO 020 N [facility] 12:52-0 ([id number]) 400 Hematocrit (Bld) 34 % Low 35-52 % PENDING [Volume fraction] LOCATIO 020 N [facility] 12:52-0 ([id number]) 400 Hemoglobin (Bld) 11.8 g/dL Negative 11.5-16.0 PENDING [Mass/Vol] g/dL LOCATIO 020 N [facility] 12:52-0 ([id number]) 400 Ketones Auto test Negative Invalid NEGATIVE PENDING 04-03 strip Ql (U) Interpreta LOCATIO 020 tion Code N [facility] 13:17-0 ([id number]) 400 Leukocyte esterase Negative Invalid NEGATIVE PENDING -0 8-2 Test strip Ql (U) Interpreta LOCATIO 020 tion Code N [facility] 13:17-0 ([id number]) 400 Lymphocytes (Bld) 2.2 10*3/uL Negative 1.0-4.0 PENDING 04-28 [#/Vol] 10*3 LOCATIO 020 [facility] 12:52-0 ([id number]) 400 Lymphocytes/100 WBC 31 % Negative 12-44 % PENDING 2 (Bld) LOCATIO 020 [facility] 12:52-0 ([id number]) 400 MCH (RBC) [Entitic 32 pg Negative 25-34 pg PENDING -0 8-2 mass] LOCATIO 020 [facility] 12:52-0 ([id number]) 400 MCHC (RBC) 35 g/dL Negative 32-36 g/dL PENDING [Mass/Vol] LOCATIO 020 [facility] 12:52-0 ([id number]) 400 MCV (RBC) [Entitic 92 Negative 80-99 PENDING -0 8-2 vol] [foz_us] LOCATIO 020 [facility] 12:52-0 ([id number]) 400 Monocytes (Bld) 0.5 10*3/uL Negative 0.0-1.0 PENDING 04-03 [#/Vol] 10*3 LOCATIO 020 [facility] 12:52-0 ([id number]) 400 Monocytes/100 WBC 7 % Negative 0-12 % PENDING 04-03 (Bld) LOCATIO 020 [facility] 12:52-0 ([id number]) 400 Mucus Ql (Urine sed) Negative Invalid PENDING 04-03 Interpreta LOCATIO 020 tion Code N [facility] 13:17-0 ([id number]) 400 Neutrophils (Bld) 4.3 10*3/uL Negative 1.8-7.8 PENDING 04-28 [#/Vol] 10*3 LOCATIO 020 [facility] 12:52-0 ([id number]) 400 Neutrophils/100 WBC 61 % Negative 42-75 % PENDING 04-28 (Bld) LOCATIO 020 [facility] 12:52-0 ([id number]) 400 Nitrite Ql (U) Negative Invalid NEGATIVE PENDING Interpreta LOCATIO 020 tion Code N [facility] 13:17-0 ([id number]) 400 pH (U) 6.5 [pH] Invalid 5-9 PENDING Interpreta LOCATIO 020 tion Code N [facility] 13:17-0 ([id number]) 400 Platelet mean volume 9.8 Negative 7.4-10.4 PENDING (Bld) [Entitic vol] [foz_us] LOCATIO 020 N [facility] 12:52-0 ([id number]) 400 Platelets (Bld) 280 10*3/uL Negative 130-400 PENDING 04-03 [#/Vol] 10*3/uL LOCATIO 020 N [facility] 12:52-0 ([id number]) 400 Protein Ql (U) Negative Invalid NEGATIVE PENDING Interpreta LOCATIO 020 tion Code N [facility] 13:17-0 ([id number]) 400 RBC (Bld) [#/Vol] 3.69 10*6/uL Low 4.35-5.85 PENDING 10*6/uL LOCATIO 020 N [facility] 12:52-0 ([id number]) 400 RBC LM.HPF (Urine Abnormal [HPF] PENDING sed) [#/Area] LOCATIO 020 N [facility] 13:17-0 (50612) 400 RBC Ql (U) 3+ Abnormal NEGATIVE PENDING LOCATIO 020 [facility] 13:17-0 ([id number]) 400 Specific gravity (U) <= Invalid 1.016-1.02 PENDING 0 [Rel density] Interpreta 2 LOCATIO 020 tion Code N [facility] 13:17-0 ([id number]) 400 Urinalysis complete NO Invalid PENDING W Reflex Culture Interpreta LOCATIO 020 panel - Urine tion Code N [facility] 13:17-0 ([id number]) 400 Urobilinogen (U) 0.2 mg/dL Invalid < = 1.0 PENDING [Mass/Vol] Interpreta mg/dL LOCATIO 020 tion Code N [facility] 13:17-0 ([id number]) 400 WBC (Bld) [#/Vol] 7.1 10*3/uL Negative 4.3-11.0 PENDING 04-28 10*3/uL LOCATIO 020 N [facility] 12:52-0 ([id number]) 400 WBC LM.HPF (Urine NONE Invalid PENDING sed) [#/Area] Interpreta LOCATIO 020 tion Code N [facility] 13:17-0 (81603) 400 laboratory on 2019-04-14 [place] [address] m[IU]/mL Normal mIU/mL Com dora ty [facility] (49215) not yet categorized on 2019-04-12 Exp date +~07/27/20 Invalid Communi Interpreta ty tion Code [facility] (75201) Lot # [id number] Invalid Communi Interpreta ty tion Code [facility] (29905) RESULTS Positive Invalid Communi Interpreta ty tion Code [facility] (74182) laboratory on 2019-04-12 Basophils (Bld) 0.022 10*3/uL Normal 0-200 Communi [#/Vol] cells/uL [facility] (61212) Basophils/100 WBC 0.3 % Normal % Communi (Bld) ty [facility] (95452) Eosinophils (Bld) 0.022 10*3/uL Normal 15-500 Commun i [#/Vol] cells/uL [facility] (47473) Eosinophils/100 WBC 0.3 % Normal % Commun i (Bld) ty [facility] (00397) Erythrocyte 12.4 % Normal 11.0-15.0 Communi distribution width % ty (RBC) [Ratio] [facility] (73206) [place] [address] m[IU]/mL Normal mIU/mL Com dora ty [facility] (02462) Hematocrit (Bld) 39.8 % Normal 35.0-45.0 Communi [Volume fraction] % ty [facility] (56329) Hemoglobin (Bld) 13.2 g/dL Normal 11.7-15.5 Communi [Mass/Vol] g/dL [facility] (50161) Lymphocytes (Bld) 1.872 10*3/uL Normal 850-3900 Commun i [#/Vol] cells/uL [facility] (09300) Lymphocytes/100 WBC 25.3 % Normal % Commun i (Bld) [facility] (81040) MCH (RBC) [Entitic 29.9 pg Normal 27.0-33.0 Communi mass] pg [facility] (05288) MCHC (RBC) 33.2 g/dL Normal 32.0-36.0 Communi [Mass/Vol] g/dL [facility] (33352) MCV (RBC) [Entitic 90.2 fL Normal 80.0-100.0 Communi vol] fL [facility] (10639) Monocytes (Bld) 0.54 10*3/uL Normal 200-950 Communi [#/Vol] cells/uL [facility] (69074) Monocytes/100 WBC 7.3 % Normal % Communi (Bld) [facility] (12233) Neutrophils (Bld) 4.943 10*3/uL Normal 3764-9806 Commun i [#/Vol] cells/uL [facility] (57088) Neutrophils/100 WBC 66.8 % Normal % Commun i (Bld) [facility] (42998) Platelet mean volume 9.8 fL Normal 7.5-12.5 Commu ni (Bld) [Entitic vol] fL [facility] (51353) Platelets (Bld) 324 10*3/uL Normal 140-400 Communi [#/Vol] Thousand/u ty [facility] (75827) RBC (Bld) [#/Vol] 4.41 10*6/uL Normal 3.80-5.10 Communi Million/uL [facility] (45537) WBC (Bld) [#/Vol] 7.4 10*3/uL Normal 3.8-10.8 Communi Thousand/u ty L [facility] (84929) not yet categorized on 2019-01-10 BLO Negative Communi ty [facility] (68874) Exp date +~2020-03-26 Invalid Communi Interpreta ty tion Code [facility] (99732) KET 06/26/2019~clear~orange - taking Invalid Communi pyridium~no~trace~1+~neg Interpreta ty tion Code [facility] (68247) CLAUDIA Positive Invalid Communi Interpreta ty tion Code [facility] (50331) Lot # [id number] Invalid Communi Interpreta ty tion Code [facility] (31938) Lot # [id number] Invalid Communi Interpreta ty tion Code [facility] (15776) SG 1.025 Invalid Communi Interpreta ty tion Code [facility] (81592) URO 2.0 Invalid Communi Interpreta ty tion Code [facility] (02705) laboratory on 2019-01-10 Bacteria identified SEE NOTE Invalid Communi Cx Nom (U) Interpreta ty tion Code [facility] (53984) pH (Bld) 6.5 [pH] Invalid Communi Interpreta ty tion Code [facility] (32787) Protein (U) 1+ Invalid Communi [Mass/Vol] Interpreta ty tion Code [facility] (08367) wbc lm.hpf (urine sed) [#/area] on 2018-09-28 WBC LM.HPF (Urine RARE [facility] sed) [#/Area] on [facility] (73461) wbc auto (bld) [#/vol] on 2018-09-28 WBC (Bld) [#/Vol] 8.6 10*3/uL 4.3-11.0 [facility] (92218) urobilinogen auto test strip (u) [mass/vol] on 2018-09-28 Urobilinogen (U) NORMAL NORMAL [facility] [Mass/Vol] on [facility] (36229) urinalysis complete w reflex culture panel (u) on 2018-09-28 Urinalysis complete NO [facility] W Reflex Culture on Via panel - Urine [facility] () urea nitrogen/creatinine [mass ratio] on 2018-09-28 Urea 21 mg/mg [facility] nitrogen/Creatinine on Via [Mass ratio] [facility] () urea nitrogen [mass/vol] on 2018-09-28 Urea nitrogen 14 mg/dL 7-18 [facility] [Mass/Vol] on [facility] () specific gravity test strip (u) [rel density] on 2018-09-28 Specific gravity (U) 1.025 Invalid 1.016-1.02 [facility] [Rel density] Interpreta 2 on Via tion Code [facility] () sodium [moles/vol] on 2018-09-28 Sodium [Moles/Vol] 139 mmol/L 135-145 [facility] () rbc lm.hpf (urine sed) [#/area] on 2018-09-28 RBC LM.HPF (Urine Invalid [facility] sed) [#/Area] Interpreta on Via tion Code [facility] () rbc lm ql (urine sed) on 2018-09-28 RBC Ql (U) 4+ Invalid NEGATIVE [facility] Interpreta on Via tion Code [facility] () rbc auto (bld) [#/vol] on 2018-09-28 RBC (Bld) [#/Vol] 4.14 10*6/uL Low 4.35-5.85 [facility] () protein test strip ql (u) on 2018-09-28 Protein Ql (U) 1+ Invalid NEGATIVE [facility] Interpreta on Via tion Code [facility] () protein [mass/vol] on 2018-09-28 Protein [Mass/Vol] 7.4 g/dL 6.4-8.2 [facility] () potassium [moles/vol] on 2018-09-28 Potassium 3.8 mmol/L 3.6-5.0 [facility] [Moles/Vol] on [facility] (94179) platelets auto (bld) [#/vol] on 2018-09-28 Platelets (Bld) 350 10*3/uL 130-400 [facility] [#/Vol[facility] () platelet mean volume auto (bld) [entitic vol] on 2018-09-28 Platelet mean volume 10.2 fL 7.4-10.4 [facility] (Bld) [Entitic vol] [facility] () ph test strip (u) on 2018-09-28 pH (U) 5 [pH] 5-9 [facility] () nitrite test strip ql (u) on 2018-09-28 Nitrite Ql (U) Negative NEGATIVE [facility] () neutrophils/100 wbc auto (bld) on 2018-09-28 Neutrophils/100 WBC 66 % 42-75 [facility] (Bld) [facility] () neutrophils auto (bld) [#/vol] on 2018-09-28 Neutrophils (Bld) 5.7 10*3/uL 1.8-7.8 [facility] [#/Vol] [facility] () mucus lm ql (urine sed) on 2018-09-28 Mucus Ql (Urine sed) MODERATE Invalid [facility] Interpreta on Via [facility]ion [facility] () monocytes/100 wbc (bld) on 2018-09-28 Monocytes/100 WBC 8 % 0-12 [facility] (Bld) [facility] () monocytes auto (bld) [#/vol] on 2018-09-28 Monocytes (Bld) 0.7 10*3/uL 0.0-1.0 [facility] [#/Vol] [facility] () mcv auto (rbc) [entitic vol] on 2018-09-28 MCV (RBC) [Entitic 93 fL 80-99 [facility] vol] [facility] () mchc auto (rbc) [mass/vol] on 2018-09-28 MCHC (RBC) 33 g/dL 32-36 [facility] [Mass/Vol] [facility] () mch auto (rbc) [entitic mass] on 2018-09-28 [facility] (RBC) [Entitic 30 pg 25-34 [facility] mass] on Via [facility] () lymphocytes/100 wbc auto (bld) on 2018-09-28 Lymphocytes/100 WBC 24 % 12-44 [facility] (Bld) on Via [facility] () lymphocytes auto (bld) [#/vol] on 2018-09-28 Lymphocytes (Bld) 2.1 10*3/uL 1.0-4.0 [facility] [#/Vol] on Via [facility] () lipase [catalytic activity/vol] on 2018-09-28 Lipase [Catalytic 17 U/L 8-78 [facility] activity/Vol] on Via [facility] () leukocyte esterase test strip ql (u) on 2018-09-28 Leukocyte esterase 1+ Invalid NEGATIVE [facility] Test strip Ql (U) Interpreta on Via tion Code [facility] () ketones auto test strip ql (u) on 2018-09-28 Ketones Auto test Negative NEGATIVE [facility] strip Ql (U) on Via [facility] () hemoglobin (bldv) [mass/vol] on 2018-09-28 Hemoglobin (Bld) 12.6 g/dL 11.5-16.0 [facility] [Mass/Vol] on Via [facility] () hematocrit (bld) [volume fraction] on 2018-09-28 Hematocrit (Bld) 39 % 35-52 [facility] [Volume fraction] on Via [facility] () glucose auto test strip ql (u) on 2018-09-28 Glucose Auto test Negative NEGATIVE [facility] strip Ql (U) on Via [facility] () glucose [mass/vol] on 2018-09-28 Glucose [Mass/Vol] 79 mg/dL 70-105 [facility] on Via [facility] () erythrocyte distribution width auto (rbc) [ratio] on 2018-09-28 Erythrocyte 12.9 % 10.0-14.5 [facility] distribution width on Via (RBC) [Ratio] [facility] l () epithelial cells.squamous lm ql (urine sed) on 2018-09-28 Epithelial RARE [facility] cells.squamous LM Ql on Via (Urine sed) [facility] l ([id number]) eosinophils/100 wbc auto (bld) on 2018-09-28 Eosinophils/100 WBC 2 % 0-10 [facility] (Bld) on Via [facility] l ([id number]) eosinophils auto (bld) [#/vol] on 2018-09-28 Eosinophils (Bld) 0.2 10*3/uL 0.0-0.3 [facility] [#/Vol] on Via [facility] l ([id number]) crystals lm ql (urine sed) on 2018-09-28 Crystals LM Ql NONE [facility] (Urine sed) on Via [facility] l () creatinine and glomerular filtration rate.predicted panel (s/p/bld) on 2018-09-28 GFR/1.73 sq [facility] M.predicted among on Via non-blacks MDRD [facility] (S/P/Bld) [Vol Hospita rate/Area] l () creatinine [mass/vol] on 2018-09-28 Creatinine 0.68 mg/dL 0.60-1.30 [facility] [Mass/Vol] on Via [facility] l ([id number]) color (u) on 2018-09-28 Color (U) YELLOW [facility] on Via [facility] ([id number]) clarity (u) on 2018-09-28 Clarity (U) CLEAR [facility] on Via [facility] ([id number]) chloride [moles/vol] on 2018-09-28 Chloride [Moles/Vol] 106 mmol/L 98-107 [facility] on Via [facility] ([id number]) casts lm ql (urine sed) on 2018-09-28 Casts LM Ql (Urine NONE [facility] sed) on Via [facility] ([id number]) carbon dioxide on 2018-09-28 CO2 [Moles/Vol] 18 mmol/L Low 21-32 [facility] on Via [facility] ([id number]) calcium measurement corrected for albumin on 2018-09-28 Albumin [Mass/Vol] 9.7 g/dL 8.5-10.1 [facility] on Via [facility] ([id number]) calcium [mass/vol] on 2018-09-28 Calcium [Mass/Vol] 9.6 mg/dL 8.5-10.1 [facility] on Via [facility] l () bilirubin test strip ql (u) on 2018-09-28 Bilirubin Ql (U) Negative NEGATIVE [facility] on Via [facility] () bilirubin [mass/vol] on 2018-09-28 Bilirubin [Mass/Vol] 0.4 mg/dL 0.1-1.0 [facility] on Via [facility] l () basophils/100 wbc auto (bld) on 2018-09-28 Basophils/100 WBC 0 % 0-10 [facility] (Bld) on Via [facility] () basophils auto (bld) [#/vol] on 2018-09-28 Basophils (Bld) 0.0 10*3/uL 0.0-0.1 [facility] [#/Vol] on Via [facility] () bacteria lm ql (urine sed) on 2018-09-28 Bacteria LM Ql Negative [facility] (Urine sed) on Via [facility] () ast [catalytic activity/vol] on 2018-09-28 AST [Catalytic 20 U/L 5-34 [facility] activity/Vol] on Via [facility] () anion gap [moles/vol] on 2018-09-28 Anion gap 15 mmol/L High 5-14 [facility] [Moles/Vol] on Via [facility] () amylase [catalytic activity/vol] on 2018-09-28 Amylase [Catalytic 60 U/L 25-125 [facility] activity/Vol] on Via [facility] () alt [catalytic activity/vol] on 2018-09-28 ALT [Catalytic 34 U/L 0-55 [facility] activity/Vol] on Via [facility] () alp [catalytic activity/vol] on 2018-09-28 ALP [Catalytic 150 U/L High 40-136 [facility] activity/Vol] on Via [facility] () albumin [mass/vol] on 2018-09-28 Albumin [Mass/Vol] 3.9 g/dL 3.2-4.5 [facility] on Via [facility] ([id number]) segmented neutrophils/100 wbc manual cnt (bld) on 2018-09-21 Segmented 68 % [facility] neutrophils/100 WBC on Via (Bld) [facility] l ([id number]) rbc morphology finding nom (bld) on 2018-09-21 RBC morphology NORMAL [facility] finding Nom (Bld) on Via [facility] l ([id number]) monocytes/100 wbc (bld) on 2018-09-21 Monocytes/100 WBC 6 % [facility] (Bld) on Via [facility] ([id number]) lymphocytes/100 wbc manual cnt (bld) on 2018-09-21 Lymphocytes/100 WBC 24 % [facility] (Bld) on Via [facility] ([id number]) eosinophils/100 wbc manual cnt (nose) on 2018-09-21 Eosinophils/100 WBC 2 % [facility] (Nose) on Via [facility] l ([id number]) basophils/100 wbc manual cnt (bld) on 2018-09-21 Basophils/100 WBC 0 % [facility] (Bld) on Via [facility] ([id number]) band form neutrophils/100 wbc (bld) on 2018-09-21 Band form 0 % [facility] neutrophils/100 WBC on Via (Bld) [facility] l ([id number]) laboratory on 2017-05-14 Basophils (Bld) 0.0 10*3/uL Invalid 0.0-0.2 Not 05-14 [#/Vol] Interpreta x10E3/uL [facility] tion Code le 08:12-0 ([id number]) 400 Basophils/100 WBC 0 % Invalid % Not 05-14 (Bld) Interpreta [facility] tion Code le 08:12-0 ([id number]) 400 Eosinophils (Bld) 0.1 10*3/uL Invalid 0.0-0.4 Not [#/Vol] Interpreta x10E3/uL [facility] tion Code le 08:12-0 ([id number]) 400 Eosinophils/100 WBC 1 % Invalid % Not (Bld) Interpreta [facility] tion Code le 08:12-0 ([id number]) 400 Erythrocyte 12.8 % Invalid 12.3-15.4 Not distribution width Interpreta % [facility] (RBC) [Ratio] tion Code le 08:12-0 ([id number]) 400 Glucose 1 Hr post 50 79 mg/dL Invalid 65-139 Not 08 -18-2 g glucose PO Interpreta mg/dL [facility] [Mass/Vol] tion Code le 08:01-0 ([id number]) 400 Hematocrit (Bld) 32.6 % Low 34.0-46.6 Not 18- 2 [Volume fraction] % [facility] le 08:12-0 (02094) 400 Hemoglobin (Bld) 10.6 g/dL Low 11.1-15.9 Not 08-18- 2 [Mass/Vol] g/dL [facility] le 08:12-0 ([id number]) 400 Immature 0.1 10*3/uL Invalid 0.0-0.1 Not 18-2 granulocytes (Bld) Interpreta x10E3/uL [facility] [#/Vol] tion Code le 08:120 ([id number]) 400 Immature 1 % Invalid % Not 05-14-2 granulocytes/100 WBC Interpreta [facility] (Bld) tion Code le 08:120 ([id number]) 400 Lymphocytes (Bld) 1.8 10*3/uL Invalid 0.7-3.1 Not 18-2 [#/Vol] Interpreta x10E3/uL [facility] tion Code le 08:12-0 ([id number]) 400 Lymphocytes/100 WBC 17 % Invalid % Not 08- 18-2 (Bld) Interpreta [facility] tion Code le 08:12-0 (54092) 400 MCH (RBC) [Entitic 30.5 pg Invalid 26.6-33.0 Not 08-1 8-2 mass] Interpreta pg [facility] tion Code le 08:12-0 (77053) 400 MCHC (RBC) 32.5 g/dL Invalid 31.5-35.7 Not 08-18-2 [Mass/Vol] Interpreta g/dL [facility] tion Code le 08:12-0 ([id number]) 400 MCV (RBC) [Entitic 94 fL Invalid 79-97 fL Not 08-1 8-2 vol] Interpreta [facility] tion Code le 08:12-0 (03715) 400 Monocytes (Bld) 1.2 10*3/uL High 0.1-0.9 Not 05-14 [#/Vol] x10E3/uL [facility] le 08:12-0 (05848) 400 Monocytes/100 WBC 11 % Invalid % Not 05-14 (Bld) Interpreta [facility] tion Code le 08:12-0 ([id number]) 400 Neutrophils (Bld) 7.2 10*3/uL High 1.4-7.0 Not [#/Vol] x10E3/uL [facility] le 08:12-0 (54793) 400 Neutrophils/100 WBC 70 % Invalid % Not (Bld) Interpreta [facility] tion Code le 08:12-0 (60555) 400 Platelets (Bld) 311 10*3/uL Invalid 150-379 Not 05-14 [#/Vol] Interpreta x10E3/uL [facility] tion Code le 08:12-0 (97286) 400 RBC (Bld) [#/Vol] 3.48 10*6/uL Low 3.77-5.28 Not x10E6/uL [facility] le 08:12-0 (75882) 400 WBC (Bld) [#/Vol] 10.3 10*3/uL Invalid 3.4-10.8 Not Interpreta x10E3/uL [facility] tion Code le 08:12-0 (61306) 400 laboratory on 2017-04-27 ABO group Nom (Bld) B Invalid Not Interpreta [facility] tion Code le 13:48-0 (88567) 400 Rh Nom (Bld) Positive Invalid Not Interpreta [facility] tion Code le 13:48-0 (77139) 400 laboratory on 2017-04-25 Bacteria identified Note Invalid Not Aer cx Nom (Genital Interpreta [facility] specimen) tion Code le 09:27-0 ([id number]) 400 laboratory on 2017-04-24 Bacteria identified Note Invalid Not Cx Nom (U) Interpreta [facility] tion Code le 20:13-0 (96837) 400 not yet categorized on 2017-04-23 Written Comment Invalid Not Authorization Interpreta [facility] tion Code le 21:43-0 (45030) 400 laboratory on 2017-04-23 Basophils (Bld) 0.0 10*3/uL Invalid 0.0-0.2 04-23 [#/Vol] Interpreta x10E3/uL [facility] tion Code le 07:31-0 (80914) 400 Basophils/100 WBC 0 % Invalid % 04-23 (Bld) Interpreta [facility] tion Code le 07:31-0 (24588) 400 Blood group antibody Negative Invalid Negative screen Ql Interpreta [facility] tion Code le 20:04-0 (87242) 400 Eosinophils (Bld) 0.0 10*3/uL Invalid 0.0-0.4 [#/Vol] Interpreta x10E3/uL [facility] tion Code le 07:31-0 (04490) 400 Eosinophils/100 WBC 0 % Invalid % (Bld) Interpreta [facility] tion Code le 07:31-0 (53316) 400 Erythrocyte 12.8 % Invalid 12.3-15.4 distribution width Interpreta % [facility] (RBC) [Ratio] tion Code le 07:31-0 (39786) 400 Hematocrit (Bld) 33.7 % Low 34.0-46.6 Not [Volume fraction] % [facility] le 07:31-0 (64580) 400 Hemoglobin (Bld) 11.1 g/dL Invalid 11.1-15.9 [Mass/Vol] Interpreta g/dL [facility] tion Code le 07:31-0 (74775) 400 Immature 0.0 10*3/uL Invalid 0.0-0.1 granulocytes (Bld) Interpreta x10E3/uL [facility] [#/Vol] tion Code le 07:31-0 (61596) 400 Immature 0 % Invalid % granulocytes/100 WBC Interpreta [facility] (Bld) tion Code le 07:31-0 (40755) 400 Lymphocytes (Bld) 1.6 10*3/uL Invalid 0.7-3.1 Not [#/Vol] Interpreta x10E3/uL [facility] tion Code le 07:31-0 (69580) 400 Lymphocytes/100 WBC 16 % Invalid % (Bld) Interpreta [facility] tion Code le 07:31-0 (17564) 400 MCH (RBC) [Entitic 31.4 pg Invalid 26.6-33.0 Not 03-28 8-2 mass] Interpreta pg [facility] tion Code le 07:31-0 (19466) 400 MCHC (RBC) 32.9 g/dL Invalid 31.5-35.7 Not [Mass/Vol] Interpreta g/dL [facility] tion Code le 07:31-0 (98225) 400 MCV (RBC) [Entitic 95 fL Invalid 79-97 fL Not 03-28 8-2 vol] Interpreta [facility] tion Code le 07:31-0 (48793) 400 Monocytes (Bld) 0.7 10*3/uL Invalid 0.1-0.9 Not 04-23 [#/Vol] Interpreta x10E3/uL [facility] tion Code le 07:31-0 (62205) 400 Monocytes/100 WBC 7 % Invalid % 04-23 (Bld) Interpreta [facility] tion Code le 07:31-0 (75325) 400 Neutrophils (Bld) 7.6 10*3/uL High 1.4-7.0 Not [#/Vol] x10E3/uL [facility] le 07:31-0 (14233) 400 Neutrophils/100 WBC 77 % Invalid % (Bld) Interpreta [facility] tion Code le 07:31-0 (47735) 400 Platelets (Bld) 246 10*3/uL Invalid 150-379 Not 04-23 [#/Vol] Interpreta x10E3/uL [facility] tion Code le 07:31-0 (93298) 400 RBC (Bld) [#/Vol] 3.54 10*6/uL Low 3.77-5.28 Not x10E6/uL [facility] le 07:31-0 (02305) 400 Rubella virus IgG Qn 5.47 Invalid Immune Not (S) Interpreta >0.99 [facility] tion Code index le 15:20-0 (89730) 400 TSH Qn 1.370 Invalid 0.450-4.50 Not Interpreta 0 uIU/mL [facility] tion Code le 08:12-0 (37512) 400 WBC (Bld) [#/Vol] 10.0 10*3/uL Invalid 3.4-10.8 Not Interpreta x10E3/uL [facility] tion Code le 07:31-0 (41060) 400 Social History No Information Vital Signs The data below is from unstructured sources Vital Response Date/Time Temperature (Fahrenheit) 96.7 degree s F (97.6 - 99.5) 06/30/2016 9:08am Temperature (Calculated Celsius) 35. 66575 degrees C (36.4 - 37.5) 06/30/2016 9:08am Temperature Source Temporal 06/30/2016 9:08am Pulse Rate (Adolescent 12-19yrs) 84 bpm (56 - 106) 06/30/2016 9:08am Respiratory Rate (Adolescent 12-19yrs) 18 bpm (15 - 20) 06/30/2016 9:08am Blood Pressure / Blood Pressure Systolic (Adolescent 12-19yrs) 142 mm Hg (115 - 120) 06/30/2016 9:08am Pain Numeric Pain Scale 4 9:08am Height (Feet) 5 feet 12/2015 9:08am Height (Inches) 8 inches 06/30/2016 9:08am Height (Calculated Centimeters) 172. 829507 cm 06/30/2016 9:08am Weight (Pounds) 136 pounds 06/30/2016 9:08am Weight (Calculated Kilograms) 61.688 563 kilograms 06/30/2016 9:08am Calculated BMI 20.68 12/2015 9:08am Vital Response Date/Time Temperature (Fahrenheit) 98 degrees F (97.6 - 99.5) 12/10/2016 12:30pm Temperature (Calculated Celsius) 36. 6696 degrees C (36.4 - 37.5) 12/10/2016 12:30pm Temperature Source Tympanic 12/10/2016 12:30pm Pulse Rate (Adolescent 12-19yrs) 109 bpm (56 - 106) 12/10/2016 12:30pm Respiratory Rate (Adolescent 12-19yrs) 18 bpm (15 - 20) 12/10/2016 12:30pm Blood Pressure / Blood Pressure Systolic (Adolescent 12-19yrs) 120 mm Hg (115 - 120) 12/10/2016 12:30pm Pain Numeric Pain Scale 5-Moderate Pain 12/10/2016 12:30pm Height (Feet) 5 feet 12:30pm Height (Inches) 8 inches 12/10/2016 12:30pm Height (Calculated Centimeters) 172. 431054 cm 12/10/2016 12:30pm Weight (Pounds) 140 pounds 12/10/2016 12:30pm Weight (Calculated Kilograms) 63.502 932 kilograms 12/10/2016 12:30pm Calculated BMI 21.28 12:30pm Vital Response Date/Time Pulse Rate (Adolescent 12-19yrs) 85 bpm (56 - 106) 01/31/2016 9:50pm O2 Sat by Pulse Oximetry 99 % (88 - 100) 01/31/2016 9:50pm Respiratory Rate (Adolescent 12-19yrs) 16 bpm (15 - 20) 01/31/2016 9:50pm Blood Pressure / Blood Pressure Systolic (Adolescent 12-19yrs) 122 mm Hg (115 - 120) 01/31/2016 9:50pm Pain Pain Intensity 4 2015 9:50pm Height (Feet) 5 feet 02/2016 9:50pm Height (Inches) 8 inches 01/31/2016 9:50pm Height (Calculated Centimeters) 172. 113882 cm 01/31/2016 9:50pm Weight (Pounds) 120 pounds 01/31/2016 9:50pm Weight (Calculated Kilograms) 54.431 085 kilograms 01/31/2016 9:50pm Calculated BMI 18.24 02/2016 9:50pm Vital Response Date/Time Temperature (Fahrenheit) 97.8 degree s F (97.6 - 99.5) 03/12/2017 10:13pm Temperature (Calculated Celsius) 36. 09321 degrees C (36.4 - 37.5) 03/12/2017 10:13pm Temperature Source Temporal 03/12/2017 10:13pm Pulse Rate (Adolescent 12-19yrs) 98 bpm (56 - 106) 03/12/2017 10:13pm O2 Sat by Pulse Oximetry 98 % (88 - 100) 03/12/2017 10:13pm Respiratory Rate (Adolescent 12-19yrs) 16 bpm (15 - 20) 03/12/2017 10:13pm Blood Pressure / Blood Pressure Systolic (Adolescent 12-19yrs) 122 mm Hg (115 - 120) 03/12/2017 10:13pm Pain Numeric Pain Scale 7 11:37pm Height (Feet) 5 feet 10:13pm Height (Inches) 9.00 inches 03/12/2017 10:13pm Height (Calculated Centimeters) 175. 966069 cm 03/12/2017 10:13pm Weight (Pounds) 155 pounds 03/12/2017 10:13pm Weight (Calculated Kilograms) 70.306 818 kilograms 03/12/2017 10:13pm Calculated BMI 21.09 10:13pm Vital Response Date/Time Temperature (Fahrenheit) 97.6 degree s F (97.6 - 99.5) 04/26/2017 1:21pm Temperature (Calculated Celsius) 36. 44011 degrees C (36.4 - 37.5) 04/26/2017 1:21pm Temperature Source Temporal 04/26/2017 1:21pm Pulse Rate (Adolescent 12-19yrs) 92 bpm (56 - 106) 04/26/2017 1:21pm Respiratory Rate (Adolescent 12-19yrs) 18 bpm (15 - 20) 04/26/2017 1:21pm Blood Pressure / Blood Pressure Systolic (Adolescent 12-19yrs) 123 mm Hg (115 - 120) 04/26/2017 1:21pm Pain Numeric Pain Scale 8 1:21pm Height (Feet) 5 feet 1:21pm Height (Inches) 9.00 inches 04/26/2017 1:21pm Height (Calculated Centimeters) 175. 418803 cm 04/26/2017 1:21pm Height Method Stated 1:21pm Weight (Pounds) 165 pounds 04/26/2017 1:21pm Weight (Calculated Grams) 99453.818 gm 04/26/2017 1:21pm Weight (Calculated Kilograms) 74.842 742 kilograms 04/26/2017 1:21pm Calculated BMI 21.09 1:21pm Weight Method Stated 1:21pm Vital Response Date/Time Temperature (Fahrenheit) 97.8 degree s F (97.6 - 99.5) 06/06/2017 12:00pm Temperature (Calculated Celsius) 36. 16130 degrees C (36.4 - 37.5) 06/06/2017 12:00pm Temperature Source Temporal 06/06/2017 12:25pm Pulse Rate (adult) 97 bpm (60 - 90) 06/06/2017 12:25pm Respiratory Rate 18 bpm (12 - 24) 06/06/2017 12:25pm O2 Sat by Pulse Oximetry 100 % (88 - 100) 06/06/2017 12:25pm Blood Pressure 120/58 mm Hg 06/06/2017 12:25pm Blood Pressure Mean 78 mm Hg 06/06/2017 12:25pm Pain Numeric Pain Scale 0-No Pain 06/06/2017 12:25pm Height (Feet) 5 feet 05/2017 8:38pm Height (Inches) 9.00 inches 06/05/2017 8:38pm Height (Calculated Centimeters) 175. 098684 cm 06/05/2017 8:38pm Weight (Pounds) 176 pounds 06/05/2017 8:38pm Weight (Ounces) 8.0 oz 0 06/05/2017 8:38pm Weight (Calculated Grams) 53505.05 gm 06/05/2017 8:38pm Weight (Calculated Kilograms) 80.059 054 kilograms 06/05/2017 8:38pm Calculated BMI 26.1 05/2017 8:38pm Weight Measurement Method Standing Scale 06/05/2017 8:38pm Vital Response Date/Time Temperature (Fahrenheit) 97.7 degree s F (97.6 - 99.5) 07/05/2017 9:10am Temperature (Calculated Celsius) 36. 38221 degrees C (36.4 - 37.5) 07/05/2017 9:10am Temperature Source Tympanic 07/05/2017 9:10am Pulse Rate (adult) 95 bpm (60 - 90) 07/05/2017 9:10am Respiratory Rate 18 bpm (12 - 24) 07/05/2017 9:10am O2 Sat by Pulse Oximetry 98 % (88 - 100) 07/05/2017 9:10am Blood Pressure 123/78 mm Hg 07/05/2017 9:10am Blood Pressure Mean 93 mm Hg 07/05/2017 9:10am Pain Numeric Pain Scale 0-No Pain 07/05/2017 11:15am Pain Intensity 4 2016 2:30am Height (Feet) 5 feet 03/2017 1:24am Height (Inches) 9.00 inches 07/03/2017 1:24am Height (Calculated Centimeters) 175. 729138 cm 07/03/2017 1:24am Weight (Pounds) 192 pounds 07/03/2017 1:24am Weight (Ounces) 0.0 oz 1 1:24am Weight (Calculated Grams) 33041.74 gm 07/03/2017 1:24am Weight (Calculated Kilograms) 87.089 736 kilograms 07/03/2017 1:24am Calculated BMI 28.4 03/2017 1:24am Weight Measurement Method Standing Scale 07/03/2017 1:24am Vital Response Date/Time Pulse Rate (Adolescent 12-19yrs) 87 bpm (56 - 106) 03/04/2018 6:47pm O2 Sat by Pulse Oximetry 99 % (88 - 100) 03/04/2018 6:47pm Respiratory Rate (Adolescent 12-19yrs) 18 bpm (15 - 20) 03/04/2018 6:47pm Blood Pressure / Blood Pressure Systolic (Adolescent 12-19yrs) 112 mm Hg (115 - 120) 03/04/2018 6:47pm Pain Numeric Pain Scale 6 6:47pm Height (Feet) 5 feet 04/2018 6:35pm Height (Inches) 9.00 inches 03/04/2018 6:35pm Height (Calculated Centimeters) 175. 162010 cm 03/04/2018 6:35pm Height Method Stated 04/2018 6:35pm Weight (Pounds) 150 pounds 03/04/2018 6:35pm Weight (Ounces) 0.0 oz 0 03/04/2018 6:35pm Weight (Calculated Grams) 0.00 gm 03/04/2018 6:35pm Weight (Calculated Kilograms) 68.038 856 kilograms 03/04/2018 6:35pm Calculated BMI 21.09 04/2018 6:35pm Weight Method Stated 04/2018 6:35pm Vital Response Date/Time Temperature (Fahrenheit) 98.7 degree s F (97.6 - 99.5) 03/13/2018 5:50am Temperature (Calculated Celsius) 37. 21420 degrees C (36.4 - 37.5) 03/13/2018 5:50am Temperature Source Temporal 03/13/2018 5:50am Pulse Rate (Adolescent 12-19yrs) 81 bpm (56 - 106) 03/13/2018 5:50am O2 Sat by Pulse Oximetry 99 % (88 - 100) 03/04/2018 6:47pm Respiratory Rate (Adolescent 12-19yrs) 18 bpm (15 - 20) 03/13/2018 5:50am Blood Pressure / Blood Pressure Systolic (Adolescent 12-19yrs) 119 mm Hg (115 - 120) 03/13/2018 5:50am Pain Numeric Pain Scale 4 5:50am Height (Feet) 5 feet 5:50am Height (Inches) 9.00 inches 03/13/2018 5:50am Height (Calculated Centimeters) 175. 985343 cm 03/13/2018 5:50am Height Method Stated 5:50am Weight (Pounds) 145 pounds 03/13/2018 5:50am Weight (Ounces) 0.0 oz 0 03/13/2018 5:50am Weight (Calculated Grams) 0.00 gm 03/13/2018 5:50am Weight (Calculated Kilograms) 65.770 894 kilograms 03/13/2018 5:50am Calculated BMI 21.09 5:50am Weight Method Stated 5:50am Vital Response Date/Time Temperature (Fahrenheit) 96.6 degree s F (97.6 - 99.5) 09/27/2018 10:41pm Temperature (Calculated Celsius) 35. 53697 degrees C (36.4 - 37.5) 09/27/2018 10:41pm Temperature Source Tympanic 09/27/2018 10:41pm Pulse Rate (adult) 83 bpm (60 - 90) 09/27/2018 10:41pm Respiratory Rate 18 bpm (12 - 24) 09/27/2018 10:41pm O2 Sat by Pulse Oximetry 97 % (88 - 100) 09/27/2018 10:41pm Blood Pressure 126/77 mm Hg 09/27/2018 10:41pm Blood Pressure Mean 93 mm Hg (65 - 110) 09/27/2018 10:41pm Pain Numeric Pain Scale 5-Moderate Pain 09/27/2018 11:11pm Height (Feet) 5 feet 09/2018 10:41pm Height (Inches) 9.00 inches 09/27/2018 10:41pm Height (Calculated Centimeters) 175. 517150 cm 09/27/2018 10:41pm Height Method Stated 09/2018 10:41pm Weight (Pounds) 160 pounds 09/27/2018 10:41pm Weight (Ounces) 6.0 oz 0 09/27/2018 10:41pm Weight (Calculated Grams) 46719.88 gm 09/27/2018 10:41pm Weight (Calculated Kilograms) 72.744 877 kilograms 09/27/2018 10:41pm Calculated BMI 28.7 09/2018 10:41pm Weight Method Stated 09/2018 10:41pm Weight Measurement Method Standing Scale 09/21/2018 9:17am Capillary Refill Capillary Refill Less Than 3 Seconds 09/27/2018 10:41pm Vital Response Date/Time Temperature (Fahrenheit) 95.9 degree s F (97.6 - 99.5) 12/11/2018 2:16pm Temperature (Calculated Celsius) 35. 99181 degrees C (36.4 - 37.5) 12/11/2018 2:16pm Temperature Source Temporal 12/11/2018 2:16pm Pulse Rate (adult) 0 bpm (60 - 90) 12/11/2018 3:24pm Respiratory Rate 0 bpm (12 - 24) 12/11/2018 3:24pm O2 Sat by Pulse Oximetry 0 % (88 - 100) 12/11/2018 3:24pm Blood Pressure 0/0 mm Hg 12/11/2018 3:24pm Blood Pressure Mean 0 mm Hg (65 - 110) 12/11/2018 3:24pm Pain Numeric Pain Scale 0-No Pain 12/11/2018 3:24pm Height (Feet) 5 feet 2:16pm Height (Inches) 9.00 inches 12/11/2018 2:16pm Height (Calculated Centimeters) 175. 279837 cm 12/11/2018 2:16pm Height Method Stated 2:16pm Weight (Pounds) 170 pounds 12/11/2018 2:16pm Weight (Calculated Grams) 19833.70 gm 12/11/2018 2:16pm Weight (Calculated Kilograms) 77.110 704 kilograms 12/11/2018 2:16pm Weight Method Stated 2:16pm Capillary Refill Capillary Refill Less Than 3 Seconds 12/11/2018 2:16pm Height 5 ft 9 in 019 2:16pm Weight 170 lb 12/11/2018 2:16pm Body Mass Index 25.1 kg/m^2 12/11/2018 2:16pm Vital Response Date/Time Temperature (Fahrenheit) 95.9 degree s F (97.6 - 99.5) 12/11/2018 2:16pm Temperature (Calculated Celsius) 35. 27214 degrees C (36.4 - 37.5) 12/11/2018 2:16pm Temperature Source Temporal 12/11/2018 2:16pm Pulse Rate (adult) 0 bpm (60 - 90) 12/11/2018 3:24pm Respiratory Rate 0 bpm (12 - 24) 12/11/2018 3:24pm O2 Sat by Pulse Oximetry 0 % (88 - 100) 12/11/2018 3:24pm Blood Pressure 0/0 mm Hg 12/11/2018 3:24pm Blood Pressure Mean 0 mm Hg (65 - 110) 12/11/2018 3:24pm Pain Numeric Pain Scale 0-No Pain 12/11/2018 3:24pm Height (Feet) 5 feet 2:16pm Height (Inches) 9.00 inches 12/11/2018 2:16pm Height (Calculated Centimeters) 175. 430084 cm 12/11/2018 2:16pm Height Method Stated 2:16pm Weight (Pounds) 170 pounds 12/11/2018 2:16pm Weight (Calculated Grams) 51573.70 gm 12/11/2018 2:16pm Weight (Calculated Kilograms) 77.110 704 kilograms 12/11/2018 2:16pm Weight Method Stated 2:16pm Capillary Refill Capillary Refill Less Than 3 Seconds 12/11/2018 2:16pm Height 5 ft 9 in 019 2:16pm Weight 170 lb 12/11/2018 2:16pm Body Mass Index 25.1 kg/m^2 12/11/2018 2:16pm Functional Status The data below is from unstructured sourcesNo functional status results.No functional status results.No functional status results.No functional status results.No functional status results.No functional status information available.No functional status information available.No functional status information available.No functional status information available.No functional status information available.No functional status information availab le.No functional status information available.No functional status information a vailable.No functional status information available.No functional status informa tion available.No functional status information available.No functional status i nformation available.No functional status information available.No functional st atus information available.No functional status information available.No functio nal status information available. Mental Status No Information Advance Directives Directive Response Recor ded Date/Time Advance Directives No 9:50pm Directive Response Recor ded Date/Time Advance Directives No 9:50pm Resuscitation Status Full Code 01/31/16 9:50pm Directive Response Recor ded Date/Time Advance Directives No 10:13pm Resuscitation Status Full Code 03/12/17 10:13pm Directive Response Recor ded Date/Time Advance Directives No 1:21pm Resuscitation Status Full Code 04/26/17 1:21pm Directive Response Recor ded Date/Time Advance Directives No 7:37pm Organ Donor Yes 06/05/17 7:37pm Resuscitation Status Full Code 06/05/17 7:37pm Directive Response Recor ded Date/Time Advance Directives No 1:25am Organ Donor Yes 07/03/17 1:25am Resuscitation Status Full Code 07/03/17 1:25am Directive Response Recor ded Date/Time Advance Directives No 6:45pm Organ Donor Yes 03/04/18 6:45pm Resuscitation Status Full Code 03/04/18 6:45pm Directive Response Recor ded Date/Time Advance Directives No 5:50am Organ Donor Yes 03/13/18 5:50am Resuscitation Status Full Code 03/13/18 5:50am Directive Response Recor ded Date/Time Advance Directives No 10:41pm Health Care Power of Copy Chaser No 09/27/18 10:41pm Organ Donor Yes 09/27/18 10:41pm Resuscitation Status Full Code 09/27/18 10:41pm Directive Response Recor ded Date/Time Advance Directives No 2:20pm Health Care Power of Copy Chaser No 12/11/18 2:20pm Organ Donor Yes 12/11/18 2:20pm Resuscitation Status Full Code 12/11/18 2:20pm Discharge Instructions No hospital discharge instructions.No hospital discharge instructions.No hospital discharge instructions.No hospital discharge instruction information available.No hospital discharge instruction information available.No hospital discharge instruction information available.No hospital discharge instruction information available.No hospital discharge instruction information available.No hospital discharge instruction information available.No hospital discharge instruction information available.No hospital discharge instruction information available. Chief Complaint and Reason for Visit Chief Complaint Abdominal/GI Problem s Reason for Visit [id number] Chief Complaint Allergic Reaction Reason for Visit Contact dermatitis Additional Source Comments This clinical document has been generated using [employer] software that has been certified by the Office of the National Coordinator for Health Information Technology (ONC 15.99.04.3023.Diam.31.00.0.153169) and the National Committee for [employer] (NCQA, as an eMeasure certified technology). FOR RECORDS PERTAINING TO PATIENTS WHO ARE OR HAVE BEEN ENROLLED IN A CHEMICAL D EPENDENCY/SUBSTANCE ABUSE PROGRAM, SOME INFORMATION MAY BE OMITTED. This clinica l summary was aggregated from multiple sources. Caution should be exercised in using it in the provision of clinical care. This summary normalizes information from multiple sources, and as a consequence, information in this document may ma terially change the coding, format and clinical context of patient data. In saira tion, data may be omitted in some cases. CLINICAL DECISIONS SHOULD BE BASED ON T HE PRIMARY CLINICAL RECORDS. [employer] [facility]. provides no warranty or guara ntee of the accuracy or completeness of information in this document.The followi ng information is based on time limited clinical information
== END 2020-04-03 17:45 | disposition home or self-care (01) ==
LOC: EDUNIT# 16:02 → ER 16:04
DX: O03.9 Complete or unspecified spontaneous abortion without complication (principal); Z77.22 Contact with and (suspected) exposure to environmental tobacco smoke (acute) (chronic)
CPT/HCPCS: 36415; 76801; 76817; 81000; 84702; 85025